=== PATIENT | male | born 1960 | race Caucasian/White ===

== ENCOUNTER → 2018-09-11 | Outpatient (CLI) | payer OTHER ==
--- NOTE | 2018-09-11 17:42 | US ---
EXAMINATION TYPE: US kidneys/renal and bladder DATE OF EXAM: 09/11/2018 COMPARISON: NONE CLINICAL HISTORY: 57-year-old male [id number]. Back pain TECHNIQUE: Multiple sonographic images of the kidneys and bladder are obtained. EXAM MEASUREMENTS: Right Kidney: 9.9 x 4.8 x 4.5 cm Left Kidney: 10.6 x 6.1 x 5.0 cm Right Kidney: No hydronephrosis. Tiny 6 mm cyst in the upper to midpole. Left Kidney: No hydronephrosis. Limited visualization due to overlying bowel gas Bladder: wnl Bilateral Jets seen: Yes IMPRESSION: No hydronephrosis. Limited visualization of portions of left kidney due to bowel gas.
== END | disposition home or self-care (01) ==
LOC: RADUSWWP 14:03
DX: M54.5 Low back pain (principal)
CPT/HCPCS: 76770

== ENCOUNTER → 2019-05-01 | Outpatient (CLI) | payer OTHER ==
--- NOTE | 2019-05-01 10:19 | MR ---
EXAMINATION TYPE: MR lumbar spine wo con DATE OF EXAM: 05/01/2019 COMPARISON: NONE HISTORY: Low back pain TECHNIQUE: T1 and T2 axial and sagittal images of the lumbar spine are submitted. FINDINGS: There is no abnormal signal seen within the visualized spinal cord or paraspinal soft tissu es. At L1-2 there is hypertrophic change of the facets. No foraminal encroachment. No disc herniation ant erior hypertrophic spurring noted. No Canal stenosis. At L2-3 there is moderate degenerative disc disease. There is circumferential disc bulging and hypert rophy the facets and ligamentum flavum with borderline central stenosis and mild effacement of thecal sac. Mild bilateral foraminal encroachment. At L3-4 there is a broad-based central disc bulging with mild effacement of thecal sac. Hypertrophic changes facets and ligamentum flavum are noted. Neural foramina are patent. At L4-5 there is advanced facet arthropathy. There is disc bulging and mild effacement of thecal sac. Neural foramina remain patent. At L5-S1 there is degenerative disc disease with focal central disc bulge. No Canal stenosis. Hypertr ophic changes facets are noted in the neural foramina remain patent. IMPRESSION: 1. Multilevel degenerative disc disease with disc bulge or small left paracentral and central disc pr otrusion L5-S1. 2. Multilevel facet arthropathy with mild foraminal encroachment L2-L3. 3. Multilevel hypertrophic changes in combination with disc bulging results in borderline central andrea nosis L2-3, L3-4, and L4-L5.
== END | disposition home or self-care (01) ==
LOC: RADMRIMAIN 09:24
DX: M48.061 Spinal stenosis, lumbar region without neurogenic claudication (principal); M51.26 Other intervertebral disc displacement, lumbar region; M51.27 Other intervertebral disc displacement, lumbosacral region; M51.37 Other intervertebral disc degeneration, lumbosacral region; M46.96 Unspecified inflammatory spondylopathy, lumbar region
CPT/HCPCS: 72148

== ENCOUNTER → 2020-09-24 | Outpatient (CLI) | payer OTHER ==
[2020-09-24 14:32] LABS: Appearance,Urine Clear (Clear); Bilirubin,Urine Negative (Negative); Blood,Urine Negative (Negative); Color,Urine Yellow; Glucose,Urine (UA) 3+ (Negative); Ketones,Urine 1+ (Negative); Leukocyte Esterase,Urine Negative (Negative); Nitrite,Urine Negative (Negative); Protein,Urine Negative (Negative); Specific Gravity,Urine 1.019 (1.001-1.035)
[2020-09-24 14:48] LABS: Basophils % (A) 0 %; Eosinophils % (A) 0 %; HCT 44.6 % (39.0-53.0); HGB 14.1 gm/dL (13.0-17.5); Lymphocytes # (A) 0.9 k/uL (1.0-4.8); Lymphocytes % (A) 11 %; MCH 30.2 pg (25.0-35.0); MCHC 31.5 g/dL (31.0-37.0); MCV 95.7 fL (80.0-100.0); Mean Platelet Volume 7.3; Monocytes # (A) 0.3 k/uL (0-1.0); Monocytes % (A) 4 %; Neutrophils # (A) 6.9 k/uL (1.3-7.7); Neutrophils % (A) 85 %; Platelet Count 274 k/uL (150-450); RBC 4.67 m/uL (4.30-5.90); RDW 12.7 % (11.5-15.5); WBC 8.2 k/uL (3.8-10.6)
[2020-09-24 14:53] LABS: Calcium 9.4 mg/dL (8.4-10.2); Potassium 4.8 mmol/L (3.5-5.1)
== END ==
LOC: LABPAT 12:51
PROVIDERS: ATTEND Urology
DX: Z01.812 Encounter for preprocedural laboratory examination (principal); R35.0 Frequency of micturition; Z79.899 Other long term (current) drug therapy
CPT/HCPCS: 80048; 81003; 85025; 87086

== ENCOUNTER 2020-10-01 09:11 | Day surgery (SDC) | payer OTHER ==
[2020-09-30 11:56] VITALS: BMI 26.6
--- NOTE | 2020-09-30 17:51 | P.GSHP ---
History of Present Illness H&P Date: 09/30/20 59 yo male with a 10 year history of impotence secondary to peripheral vascular disease from hyper cholesterolemia and htn He has eventually failed pde5 inhibitors and vasoactive injections. HE comes for an inflatable penile prosthesis. the risks and complications including failure, infection, erosion, pain, lack of satisfaction among others have been explained understood and accepted. - Constitutional Constitutional: Denies chills, Denies fever - EENT Eyes: denies blurred vision, denies pain Ears, nose, mouth and throat: Denies headache, Denies sore throat - Cardiovascular Cardiovascular: Denies chest pain, Denies shortness of breath - Respiratory Respiratory: Denies cough, Denies 7 - Gastrointestinal Gastrointestinal: Denies abdominal pain, Denies diarrhea, Denies nausea, Denies vomiting - Genitourinary (Female) Genitourinary: Denies dysuria, Denies hematuria - Genitourinary (Male) Genitourinary: Denies dysuria, Denies hematuria - Musculoskeletal Musculoskeletal: Denies myalgias - Integumentary Integumentary: Denies pruritus, Denies rash - Neurological Neurological: Denies numbness, Denies weakness - Psychiatric Psychiatric: Denies anxiety, Denies depression - Endocrine Endocrine: Denies fatigue, Denies weight change Past Medical History Past Medical History: GERD/Reflux, Hyperlipidemia, Hypertension, Prostate Disorder History of Any Multi-Drug Resistant Organisms: None Reported Past Surgical History: Adenoidectomy, Appendectomy, Cholecystectomy, Orthopedic Surgery, Tonsillectomy Additional Past Surgical History / Comment(s): BILAT HEEL SPURS REMOVED. DEVIATED SEPTUM REPAIRED Past Anesthesia/Blood Transfusion Reactions: No Reported Reaction Smoking Status: Former smoker - Past Family History Mother Family Medical History: Cancer Medications and Allergies Home Medications Medication Instructions Recorded Confirmed Type Cetirizine HCl 10 mg PO DAILY 09/30/20 09/30/20 History Divalproex [Depakote] 500 mg PO HS 09/30/20 09/30/20 History Losartan [Cozaar] 25 mg PO DAILY 09/30/20 09/30/20 History Lurasidone HCl [Latuda] 60 mg PO DAILY 09/30/20 09/30/20 History Montelukast [Singulair] 10 mg PO DAILY 09/30/20 09/30/20 History Naproxen 375 mg PO DAILY PRN 09/30/20 09/30/20 History Pantoprazole Sodium 40 mg PO DAILY 09/30/20 09/30/20 History Pravastatin Sodium [Pravachol] 80 mg PO DAILY 09/30/20 09/30/20 History Tamsulosin [Flomax] 0.4 mg PO HS 09/30/20 09/30/20 History hydrOXYzine pamoate [hydrOXYzine 50 mg PO TID 09/30/20 09/30/20 History PAMOATE] Allergies Allergy/AdvReac Type Severity Reaction Status Date / Time bee venom protein (honey bee) Allergy Anaphylaxis Verified 09/30/20 11:41 codeine Allergy Dyspnea Verified 09/30/20 11:41 Sulfa (Sulfonamide Allergy Dyspnea Verified 09/30/20 11:41 Antibiotics) Surgical - Exam - General well developed, well nourished, no distress - Eyes PERRL - ENT no hearing loss - Neck no masses, trachea midline - Respiratory normal expansion, normal respiratory effort - Cardiovascular Rhythm: regular - Abdomen Abdomen: soft, non tender - Genitourinary normal penis with no external lesions, testicles present - Integumentary no rash, no growths - Neurologic normal coordination, normal sensation - Musculoskeletal normal gait, normal posture - Psychiatric oriented to time, oriented to person, oriented to place, speech is normal, memory intact Assessment and Plan Assessment: Impression: 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
--- NOTE | 2020-09-30 17:56 | P.GSHP ---
History of Present Illness H&P Date: 09/30/20 89 yo male who comes for a second ureteroscopy and laser lithotripsy to a very large right ureteral stone. Part of the stone was removed on 09/08/2020 but due to severe edema I aborted the procedure as I was afraid of losing ureteral access. He comes for another ureteroscopy and laser lithotripsy to the rt ureteral stone - Constitutional Constitutional: Denies chills, Denies fever - EENT Eyes: denies blurred vision, denies pain Ears, nose, mouth and throat: Denies headache, Denies sore throat - Cardiovascular Cardiovascular: Denies chest pain, Denies shortness of breath - Respiratory Respiratory: Denies cough, Denies 7 - Gastrointestinal Gastrointestinal: Denies abdominal pain, Denies diarrhea, Denies nausea, Denies vomiting - Genitourinary (Female) Genitourinary: Denies dysuria, Denies hematuria - Genitourinary (Male) Genitourinary: Denies dysuria, Denies hematuria - Musculoskeletal Musculoskeletal: Denies myalgias - Integumentary Integumentary: Denies pruritus, Denies rash - Neurological Neurological: Denies numbness, Denies weakness - Psychiatric Psychiatric: Denies anxiety, Denies depression - Endocrine Endocrine: Denies fatigue, Denies weight change Past Medical History Past Medical History: GERD/Reflux, Hyperlipidemia, Hypertension, Prostate Disorder History of Any Multi-Drug Resistant Organisms: None Reported Past Surgical History: Adenoidectomy, Appendectomy, Cholecystectomy, Orthopedic Surgery, Tonsillectomy Additional Past Surgical History / Comment(s): BILAT HEEL SPURS REMOVED. DEVIATED SEPTUM REPAIRED Past Anesthesia/Blood Transfusion Reactions: No Reported Reaction Smoking Status: Former smoker - Past Family History Mother Family Medical History: Cancer Medications and Allergies Home Medications Medication Instructions Recorded Confirmed Type Cetirizine HCl 10 mg PO DAILY 09/30/20 09/30/20 History Divalproex [Depakote] 500 mg PO HS 09/30/20 09/30/20 History Losartan [Cozaar] 25 mg PO DAILY 09/30/20 09/30/20 History Lurasidone HCl [Latuda] 60 mg PO DAILY 09/30/20 09/30/20 History Montelukast [Singulair] 10 mg PO DAILY 09/30/20 09/30/20 History Naproxen 375 mg PO DAILY PRN 09/30/20 09/30/20 History Pantoprazole Sodium 40 mg PO DAILY 09/30/20 09/30/20 History Pravastatin Sodium [Pravachol] 80 mg PO DAILY 09/30/20 09/30/20 History Tamsulosin [Flomax] 0.4 mg PO HS 09/30/20 09/30/20 History hydrOXYzine pamoate [hydrOXYzine 50 mg PO TID 09/30/20 09/30/20 History PAMOATE] Allergies Allergy/AdvReac Type Severity Reaction Status Date / Time bee venom protein (honey bee) Allergy Anaphylaxis Verified 09/30/20 11:41 codeine Allergy Dyspnea Verified 09/30/20 11:41 Sulfa (Sulfonamide Allergy Dyspnea Verified 09/30/20 11:41 Antibiotics) Surgical - Exam - General well developed, well nourished - Eyes PERRL - ENT decreased hearing - Neck trachea midline - Respiratory normal expansion, normal respiratory effort - Cardiovascular Rhythm: regular - Abdomen Abdomen: soft, non tender - Genitourinary normal penis with no external lesions, testicles present - Integumentary no rash, no growths - Neurologic normal coordination, normal sensation - Musculoskeletal normal posture - Psychiatric oriented to time, oriented to person, oriented to place, speech is normal, memory intact Assessment and Plan Assessment: Impression: Right ureteral stone Plan: Right ureteroscopy with lasere lithotripsy
[~2020-10-01 09:11] MED LIST: AMPICILLIN 1,000 MG in SODIUM CHLORIDE 0.9% 50 ML IVPB ONE; DEXAMETHASONE SOD PHOSPHATE 4 MG/ML 1 ML VIAL IV ONE; GENTAMICIN 110 MG in SODIUM CHLORIDE 0.9% 100 ML IVPB ONE; HYDROmorphone 0.5 MG/0.5 ML SYRINGE IVP PRN; LACTATED RINGERS 1,000 ML IV SCH; ONDANSETRON 4 MG/2 ML VIAL IVP ONE
[2020-10-01] MEDS ORDERED: LIDOCAINE 1% (10MG/ML) FOR IV START INTRADERMA ONE (09:54)
[2020-10-01 10:07] LABS: Glucose,Whole Blood 107 mg/dL (75-99)
[2020-10-01] MEDS ORDERED: SUCCINYLCHOLINE CHLORIDE 100 MG/5 ML SYR IV ONE (10:58)
[2020-10-01] MEDS ORDERED: PROPOFOL 10 MG/ML 20 ML VIAL IV ONE (10:58)
[2020-10-01] MEDS ORDERED: LIDOCAINE 1% INJ 10MG/ML (20 ML MDV) ONE (10:58)
[2020-10-01] MEDS ORDERED: fentaNYL (PF) 50 MCG/ML 2 ML AMP ONE (10:58)
[2020-10-01] MEDS ORDERED: MIDAZOLAM 2 MG/2 ML VIAL ONE (10:58)
--- NOTE | 2020-10-01 12:31 | P.OP ---
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 He has impotence for several years. He has failed PDE 5 inhibitors vasoactive injections. He has no erection. He wishes an implant. He comes for that this procedure. The risks and complications including infection bleeding pain erosion malfunction and lack of satisfaction been explained and understood and accepted. Description of Procedure: Patient is brought to the operating suite. He is given a general endotracheal anesthesia. He is prepped and draped sterilely. A midline infrapubic incision is made to just above the pubis. The rectus fascias opened in the midline. The prevesical space is developed for the reservoir. I bring a right angle clamp through the external inguinal ring into the prevesical space. I then attached the reservoir tubing and pull back through the external ring. I then inflated the reservoir to 65 mL. I closed the rectus fascia with a running 0 PDS. I then exposed the corpora bilaterally. I make corporotomies after placing stay stitches in each corpora. I then dilate the corpora proximally and distally right and left with Metzenbaum scissors and then Hegar dilators 9-13 bilaterally. I measured the length of the corpora 9 cm proximally and 8 cm distally bilaterally. I therefore use a series 700 CX implant 15 cm +2 cm rear- tip extension forester. I then attached the ditch at the tip of the implant through the Cachorro needle into the Bryant introducer and advanced the implant right left through the tip of the glans penis a. I then place the implant in distally and proximally. I inflate the implant and there is no ST deformity or buckling. I then deflated the implant and close each corporotomy 3-0 PDS. Then make a separate scrotal pouch for the pump. Then connected the pump to the reservoir with straight connects. I once again inflate and deflate the implant and it does so nicely. The wound thoroughly. The wound was closed with 3-0 chromic and then 4-0 Vicryl. The skin is closed. The patient is awake and returned recovery in good condition. Prior to this a 14-Malian Sumner catheters passed in and out of the bladder with clear urine return. Patellar procedure well. The blood loss is approximately 100 mL. We discharged home upon recovery and found the office one week.
[2020-10-01 12:36] VITALS: TEMP 97.1
[2020-10-01] MEDS ORDERED: HYDROcodone/APAP 5-325MG 1 EACH TAB ONE (13:21)
[2020-10-01] MEDS ORDERED: HYDROcodone/APAP 5-325MG 1 EACH TAB PO ONE (13:27)
[2020-10-01 13:49] VITALS: RESP 16
[2020-10-01 14:06] VITALS: BP 133/83; PULSE 63
== END 2020-10-01 14:22 | disposition home or self-care (01) ==
LOC: OR 09:11
PROVIDERS: ATTEND Urology
DX: N52.1 Erectile dysfunction due to diseases classified elsewhere (principal); I73.9 Peripheral vascular disease, unspecified; I10 Essential (primary) hypertension; N20.1 Calculus of ureter; E78.5 Hyperlipidemia, unspecified; F31.9 Bipolar disorder, unspecified; F90.9 Attention-deficit hyperactivity disorder, unspecified type; K21.9 Gastro-esophageal reflux disease without esophagitis; E78.00 Pure hypercholesterolemia, unspecified; Z91.030 Bee allergy status; Z88.5 Allergy status to narcotic agent; Z79.1 Long term (current) use of non-steroidal anti-inflammatories (NSAID); Z88.2 Allergy status to sulfonamides; Z79.899 Other long term (current) drug therapy; Z98.890 Other specified postprocedural states; Z90.49 Acquired absence of other specified parts of digestive tract; Z87.891 Personal history of nicotine dependence; Z80.9 Family history of malignant neoplasm, unspecified
CPT/HCPCS: 54405; C1813; J2250; J1580; J1100; J2405; J2001; J3010; J0290; J0330; J2704

== ENCOUNTER → 2021-03-30 | Outpatient (CLI) | payer OTHER ==
[2021-03-30 11:25] VITALS: BP 115/75; PULSE 64; RESP 18; TEMP 98
--- NOTE | 2021-03-30 11:47 | P.PAINCN ---
History of Present Illness - Reason for Consult Consult date: 03/30/21 - History of Present Illness This is 60 years old male with a chronic history of severe low back pain with radiation to the lower extremity bilaterally, started 2 years ago, denies any initiating event and he reported that the intensity of the pain increased gradually over time, his done physical therapy without any benefit and he had interventional pain management injections on a different pain clinic with some benefit, continues having severe low back pain with radiation to the lower extremity associated with some numbness and tingling sensation, the pain is constant and increases with any activity interfere with her quality of life and preventing him from doing activities of daily livings, if patient feels some weakness in his lower extremity bilaterally, he denies any change in the bowel movement or urination he denies any fever or night sweats Past Medical History Past Medical History: GERD/Reflux, Hyperlipidemia, Hypertension, Prostate Disorder History of Any Multi-Drug Resistant Organisms: None Reported Past Surgical History: Adenoidectomy, Appendectomy, Cholecystectomy, Orthopedic Surgery, Tonsillectomy Additional Past Surgical History / Comment(s): BILAT HEEL SPURS REMOVED. DEVIATED SEPTUM REPAIRED. PENILE IMPLANT 09/2020 Past Anesthesia/Blood Transfusion Reactions: No Reported Reaction Past Psychological History: ADD/ADHD, Bipolar Smoking Status: Former smoker Past Alcohol Use History: None Reported Additional Past Alcohol Use History / Comment(s): QUIT SMOKING 2018 Past Drug Use History: None Reported - Past Family History Mother Family Medical History: Cancer Medications and Allergies Home Medications Medication Instructions Recorded Confirmed Type Cetirizine HCl 10 mg PO DAILY 09/30/20 10/01/20 History Divalproex [Depakote] 500 mg PO HS 09/30/20 10/01/20 History Losartan [Cozaar] 25 mg PO DAILY 09/30/20 10/01/20 History Lurasidone HCl [Latuda] 60 mg PO DAILY 09/30/20 10/01/20 History Montelukast [Singulair] 10 mg PO DAILY 09/30/20 10/01/20 History Naproxen 375 mg PO DAILY PRN 09/30/20 10/01/20 History Pantoprazole Sodium 40 mg PO DAILY 09/30/20 10/01/20 History Pravastatin Sodium [Pravachol] 80 mg PO DAILY 09/30/20 10/01/20 History Tamsulosin [Flomax] 0.4 mg PO HS 09/30/20 10/01/20 History hydrOXYzine pamoate [hydrOXYzine 50 mg PO TID 09/30/20 10/01/20 History PAMOATE] HYDROcodone/APAP 5-325MG [Price 1 tab PO Q4HR PRN #14 tab 10/01/20 Rx 5-325] Allergies Allergy/AdvReac Type Severity Reaction Status Date / Time bee venom protein (honey bee) Allergy Anaphylaxis Verified 03/11/21 14:13 codeine Allergy Dyspnea Verified 03/11/21 14:13 Sulfa (Sulfonamide Allergy Dyspnea Verified 03/11/21 14:13 Antibiotics) Physical Exam Vitals: Vital Signs Temp Pulse Resp BP Pulse Ox 03/30/21 11:21 98.0 F 64 18 115/75 94 L Physical Examinations : -Constitutiona : Cooperative , not in acute distress . -HEENT : nech : supple , no Lymphadenopathy , normal thyroid size . : eyes : no ptosis , no icterus, no photophobia . - neurologic : Cranial nerve II to XII intact , no focal neurological deffecit . -psychatric : alert , oriented X 3 , appropriate affect , intact judgment and insight . -Lymphatic : no Lymphadenopathy . - musculoskeltal : Cervical Spine motor stregnth in the deltoid and biceps, normal right side , normal Left side motor stregnth biceps and the wrist extensors normal right side ,normal left side . motor stregnth in the triceps muscle . normal Right side , normal Left side deep tendon reflexes normal at the biceps , normal at Brachioradialis , normal at triceps. cervical facet loading test: Positive Bilaterally Spurling test= positive Right , positive left. Neck distraction test= positive Right , positive left. Gabi sign= positive right, positive left . Lumber spine moter stegnth lower extremities ,thigh and legs 4/5 Right side , 4/5 Left side deep tendon reflexes : normal Knee Jerk , normal ankle Jerk lumber facet Loading Test =positive Right , positive Left Range of motion of the lumbar spine Flexion 30 degrees, extension 10 degrees strait leg raising test = positive at 30 degree on the right side and then increased positive at 60 on the left Fabere test= positive Right , and positive LT . Sever tenderness over the Sacroiliac joint on the Right , and Left sides tenderness over the trochanteric bursa bilaterally Results Comments: MRI of the lumbar spine multilevel lumbar degenerative disc disease multilevel lumbar facet arthropathy Assessment and Plan Plan: Assessment and plan=1-lumbar spondylosis with lumbar facet arthropathy without myelopathy. 2-lumbar degenerative disc disease. he would be good candidate for diagnostic medial branch block lumbar area at L3, L4 , L5 x2 with possible RFA Time with Patient: Greater than 30 PQRS Measure Charge Sheet Measure #130: Documentation of Current Meds in Medical Chart: Patient's medications documented in chart Measure #226: Tobacco Use: Screen & Cessation Intervention: Pt not a tobacco user Measure #111: Pneumonia Vaccination: Pneumococcal vaccine administered or previously received Measure #47: Advance Care Plan: Advance care planning discussed & documented, pt chose/unable to give Measure #412: Opioid Treatment Agreement: No documentation of signed opioid treatment agreement Measure #408: Opioid Therapy Follow-up Evaluation: Patient had NO f/u eval minimum every 3 months during opioid therapy Measure #317: Preventitive Care & Scrn High Bld Press & F/U: Normal blood pressure, f/u not required Measure #128: Body Mass Index (BMI) Screening & Follow-up: BMI documented ABOVE normal parameters - f/u documented Measure #131: Pain Assessment & Follow-up: Pain positive & plan documented, Follow-up scheduled Measure #431: Unhealthy Alcohol Use Preventative Care & Scrn: Patient not identified as an unhealthy alcohol user PQRS Narrative: Blood Pressure 115/75 Pain Intensity [Left Lower 9 Back] Scale Used Numeric (1 - 10) Hx Alcohol Use (MH) No Home Medications: Ambulatory Orders Cetirizine HCl 10 mg PO DAILY 09/30/20 Divalproex [Depakote] 500 mg PO HS 09/30/20 Losartan [Cozaar] 25 mg PO DAILY 09/30/20 Lurasidone HCl [Latuda] 60 mg PO DAILY 09/30/20 Montelukast [Singulair] 10 mg PO DAILY 09/30/20 Naproxen 375 mg PO DAILY PRN 09/30/20 Pantoprazole Sodium 40 mg PO DAILY 09/30/20 Pravastatin Sodium [Pravachol] 80 mg PO DAILY 09/30/20 Tamsulosin [Flomax] 0.4 mg PO HS 09/30/20 hydrOXYzine pamoate [hydrOXYzine PAMOATE] 50 mg PO TID 09/30/20 HYDROcodone/APAP 5-325MG [Price 5-325] 1 tab PO Q4HR PRN #14 tab 10/01/20
== END ==
LOC: PNWHC3 10:22
PROVIDERS: ATTEND Specialist
DX: M47.816 Spondylosis without myelopathy or radiculopathy, lumbar region (principal); M51.36 Other intervertebral disc degeneration, lumbar region; E78.5 Hyperlipidemia, unspecified; I10 Essential (primary) hypertension; F90.9 Attention-deficit hyperactivity disorder, unspecified type; F31.9 Bipolar disorder, unspecified; Z87.891 Personal history of nicotine dependence
CPT/HCPCS: 99211

== ENCOUNTER 2021-04-17 09:50 | Day surgery (SDC) | payer OTHER ==
[2021-04-15 14:39] VITALS: BMI 28.2
[2021-04-17 10:09] VITALS: TEMP 97.9
[2021-04-17] MEDS: LACTATED RINGERS 1,000 ML IV SCH ×2 (10:20→10:43)
[2021-04-17] MEDS ORDERED: fentaNYL (PF) 50 MCG/ML 2 ML AMP ONE (10:45)
[2021-04-17] MEDS ORDERED: MIDAZOLAM 2 MG/2 ML VIAL ONE (10:45)
[2021-04-17] MEDS ORDERED: methylPREDNISolone ACETATE 40 MG/ML 1 ML VIAL ONE (10:45)
[2021-04-17] MEDS ORDERED: ROPIVACAINE 5MG/ML 20ML VIAL ONE (10:45)
--- NOTE | 2021-04-17 11:02 | P.PCN ---
Date of Procedure: 04/17/21 Procedure(s) Performed: PREOPERATIVE DIAGNOSIS : 1- Lumbar spondylosis with Facet Arthropathy without myelopathy . 2- Lumber degenerative disc disease POSTOPERATIVE DIAGNOSIS: 1- Lumbar spondylosis with Facet Arthropathy without myelopathy . 2- Lumber degenerative disc disease. PROCEDURE: Diagnostic bilateral L3 , L4 , and L5 medial branch block under fluoroscopy guidance(fluoroscopy images available in the radiology Department ) ( To target the facet joint between bilateral L4-5 , and L5-S1 ) ANESTHESIA: Monitored anesthesia care as per anesthesia department. EBL: Minimal COMPLICATION: None PROCEDURE INDICATION: Chronic low back pain secondary to Facet arthropathy unresponsive to conservative treatment. PROCEDURE DESCRIPTION: the patient was seen and identified in the preop holding area , risks and benefits and possible complications of the procedure and alternative were discussed with the patient, and the patient agreed to proceed with the procedure and signed the consent and vital signs monitored during the procedure and fluoroscopy was used to maximize the benefit and accuracy of the needle placement, and sedation was given to decrease patient anxiety, patient was taken to the procedure room and placed in prone position vital signs monitored in the back prepped with chlorhexidine X3 then under strict sterile technique using a right oblique fluoroscopy ,the junction of the transverse process and the superior articulating process of the right L3 , L4 , and L5 vertebra which corresponding to the fluoroscopy image of the eye of the Audi dog on the block side for the medial branches and subsequently , after local infiltration of skin and subcu tissuies with Ropivacaine 0.5 % , one mL at each level ,then 22-gauge Quincke-type needles , 3 needle was used , each one of them placed at the junction of the base of the transverse process and the superior articular process at the appropriate level, and the needle was advanced until the periosteum contacted, needle placement confirmed with AP oblique and lateral view and after appropriate needle placement confirmed, and after negative aspiration for heme and CSF and there was no paresthesia 1-1/2 mL of Ropivacaine 0.5% mixed with 20 mg Depo-Medrol , then half mL injected at each level after negative aspiration the needle subsequently removed and the same procedure repeated for the left side at left side at L3 , L4 and L5 levels. At the end of the procedure and the needles removed and a bandage applied after the skin was cleaned the cleaning solution patient taken to recovery room in stable condition and monitors in the recovery room for 20-30 minutes and discharged home in stable condition after discharge criteria met and patient will follow up with the pain clinic in 2-4 weeks
[2021-04-17] MEDS ORDERED: IV FLUID CONTINUATION 1,000 ML IV ONE (11:07)
[2021-04-17] MEDS ORDERED: LACTATED RINGERS 650 ML IV ONE (11:07)
[2021-04-17 12:13] VITALS: BP 120/72; PULSE 63; RESP 20
--- NOTE | 2021-04-17 15:14 | FL ---
Fluoroscopy HISTORY: Pain 9 seconds fluoroscopy time supplied to the referring clinician. 4 intraoperative C-arm images docume nt the procedure. See dictated report from anesthesia.
== END 2021-04-17 12:24 | disposition home or self-care (01) ==
LOC: ORPAIN 09:50
PROVIDERS: ATTEND Specialist
DX: M47.816 Spondylosis without myelopathy or radiculopathy, lumbar region (principal); I10 Essential (primary) hypertension; E78.5 Hyperlipidemia, unspecified; N40.0 Benign prostatic hyperplasia without lower urinary tract symptoms; Z79.899 Other long term (current) drug therapy; Z88.5 Allergy status to narcotic agent; M51.36 Other intervertebral disc degeneration, lumbar region
CPT/HCPCS: 64493; 64494; J2250; J1030; J3010; J2795

== ENCOUNTER → 2021-04-28 | Outpatient (CLI) | payer OTHER ==
--- NOTE | 2021-04-28 11:40 | MR ---
EXAMINATION TYPE: MR lumbar spine wo con DATE OF EXAM: 04/28/2021 COMPARISON: MR lumbar spine 05/01/2019 HISTORY: Chronic LBP, BLE radiculopathy. TECHNIQUE: Multiplanar, multisequence images of the lumbar spine were acquired. L1-L2: Normal disc appearance without desiccation. No herniation, protrusion or disc bulging. No ca nal stenosis is present. Foramina are patent bilaterally. L2-L3: Posterior extension endplate disc complex causes mild anterior mass effect on the thecal sac. There is some facet arthropathy change. No significant foraminal encroachment. L3-L4: There is some facet arthropathy, hypertrophy ligamentum flavum. Posterior extension of endplat e disc complex contacts anterior thecal sac, no significant foraminal encroachment. L4-L5: Posterior disc bulge causes slight anterior mass effect on the thecal sac. There is facet arth ropathy change with hypertrophy ligamentum flavum. No significant foraminal encroachment. L5-S1: Posterior broad-based disc bulge causes contact with the anterior thecal sac, possibly proxima l S1 nerve roots. No significant foraminal encroachment. Lumbar segments are intact. No paraspinal masses are identified. Conus medullaris has a normal appe arance. Lumbar vertebral bodies show stable height and alignment, there is multilevel spondylosis wit h endplate discogenic marrow signal change. Loss of disc height signal is present L5-S1, L2-3. No sig nificant spinal stenosis. IMPRESSION: There is no significant interval change. Multilevel degenerative disc disease, facet arthropathy, no significant canal stenosis or foraminal encroachment.
== END | disposition home or self-care (01) ==
LOC: RADMRIMAIN 10:38
PROVIDERS: ATTEND Physician Assistant Medical
DX: M51.36 Other intervertebral disc degeneration, lumbar region (principal); M47.816 Spondylosis without myelopathy or radiculopathy, lumbar region; Z87.39 Personal history of other diseases of the musculoskeletal system and connective tissue
CPT/HCPCS: 72148

== ENCOUNTER 2021-05-15 10:09 | Day surgery (SDC) | payer OTHER ==
[2021-05-14 11:39] VITALS: BMI 28.0
[~2021-05-15 10:09] MED LIST changes: -AMPICILLIN 1,000 MG in SODIUM CHLORIDE 0.9% 50 ML IVPB ONE; -DEXAMETHASONE SOD PHOSPHATE 4 MG/ML 1 ML VIAL IV ONE; -GENTAMICIN 110 MG in SODIUM CHLORIDE 0.9% 100 ML IVPB ONE; -HYDROmorphone 0.5 MG/0.5 ML SYRINGE IVP PRN; -ONDANSETRON 4 MG/2 ML VIAL IVP ONE
[2021-05-15] MEDS ORDERED: LACTATED RINGERS 1,000 ML IV ONE (10:24)
[2021-05-15 10:25] VITALS: TEMP 97.7
[2021-05-15] MEDS ORDERED: fentaNYL (PF) 50 MCG/ML 2 ML AMP ONE (11:09)
[2021-05-15] MEDS ORDERED: ROPIVACAINE 5MG/ML 20ML VIAL ONE (11:09)
[2021-05-15] MEDS ORDERED: methylPREDNISolone ACETATE 40 MG/ML 1 ML VIAL ONE (11:09)
[2021-05-15] MEDS ORDERED: MIDAZOLAM 2 MG/2 ML VIAL ONE (11:09)
--- NOTE | 2021-05-15 11:32 | P.PCN ---
Date of Procedure: 05/15/21 Procedure(s) Performed: PREOPERATIVE DIAGNOSIS : 1- Lumbar spondylosis with Facet Arthropathy without myelopathy . 2- Lumber degenerative disc disease POSTOPERATIVE DIAGNOSIS: 1- Lumbar spondylosis with Facet Arthropathy without myelopathy . 2- Lumber degenerative disc disease. PROCEDURE: Diagnostic bilateral L3 , L4 , and L5 medial branch block under fluoroscopy guidance(fluoroscopy images available in the radiology Department ) ( To target the facet joint between bilateral L4-5 , and L5-S1 ) # 2nd ANESTHESIA: Monitored anesthesia care as per anesthesia department. EBL: Minimal COMPLICATION: None PROCEDURE INDICATION: Chronic low back pain secondary to Facet arthropathy unresponsive to conservative treatment. PROCEDURE DESCRIPTION: the patient was seen and identified in the preop holding area , risks and benefits and possible complications of the procedure and alternative were discussed with the patient, and the patient agreed to proceed with the procedure and signed the consent and vital signs monitored during the procedure and fluoroscopy was used to maximize the benefit and accuracy of the needle placement, and sedation was given to decrease patient anxiety, patient was taken to the procedure room and placed in prone position vital signs monitored in the back prepped with chlorhexidine X3 then under strict sterile technique using a right oblique fluoroscopy ,the junction of the transverse process and the superior articulating process of the right L3 , L4 , and L5 vertebra which corresponding to the fluoroscopy image of the eye of the Audi dog on the block side for the medial branches and subsequently , after local infiltration of skin and subcu tissuies with Ropivacaine 0.5 % , one mL at each level ,then 22-gauge Quincke-type needles , 3 needle was used , each one of them placed at the junction of the base of the transverse process and the superior articular process at the appropriate level, and the needle was advanced until the periosteum contacted, needle placement confirmed with AP oblique and lateral view and after appropriate needle placement confirmed, and after negative aspiration for heme and CSF and there was no paresthesia 1-1/2 mL of Ropivacaine 0.5% mixed with 20 mg Depo-Medrol , then half mL injected at each level after negative aspiration the needle subsequently removed and the same procedure repeated for the left side at left side at L3 , L4 and L5 levels. At the end of the procedure and the needles removed and a bandage applied after the skin was cleaned the cleaning solution patient taken to recovery room in stable condition and monitors in the recovery room for 20-30 minutes and discharged home in stable condition after discharge criteria met and patient will follow up with the pain clinic in 2-4 weeks
[2021-05-15 11:39] VITALS: RESP 16
[2021-05-15 11:56] VITALS: BP 123/83; PULSE 82
--- NOTE | 2021-05-15 12:00 | FL ---
Fluoroscopy INDICATION: Pain FINDINGS: Fluoroscopy time: 36 seconds. Images obtained: 4. IMPRESSIONS: 1. Documentation of fluoroscopy.
[2021-05-15] MEDS ORDERED: IV FLUID CONTINUATION 1,000 ML IV ONE (12:10)
== END 2021-05-15 12:24 | disposition home or self-care (01) ==
LOC: ORPAIN 10:09
PROVIDERS: ATTEND Specialist
DX: G89.29 Other chronic pain (principal); M47.816 Spondylosis without myelopathy or radiculopathy, lumbar region; M51.36 Other intervertebral disc degeneration, lumbar region; I10 Essential (primary) hypertension; E78.5 Hyperlipidemia, unspecified; N40.0 Benign prostatic hyperplasia without lower urinary tract symptoms; K21.9 Gastro-esophageal reflux disease without esophagitis; Z79.891 Long term (current) use of opiate analgesic; Z79.899 Other long term (current) drug therapy; Z91.030 Bee allergy status; Z88.5 Allergy status to narcotic agent; Z88.2 Allergy status to sulfonamides
CPT/HCPCS: 64493; 64494; J2250; J1030; J3010; J2795

== ENCOUNTER → 2021-06-10 | Outpatient (CLI) | payer OTHER ==
[2021-06-10 13:11] VITALS: BP 107/75; PULSE 75; RESP 18; TEMP 98.3
--- NOTE | 2021-06-10 13:31 | P.PN ---
Subjective Progress Note Date: 06/10/21 This is 60 years old male with a chronic history of severe low back pain with radiation to the lower extremity bilaterally, started 2 years ago, denies any initiating event and he reported that the intensity of the pain increased gradually over time, his done physical therapy without any benfit, recently we did diagnostic medial branch block lumbar area at L3 L4, L5 BIlaterally 2, he reported that he had an 80% improvement in his back pain after each block and the pain relief as it for a few days, and today he is having severe low back pain, the pain is constant and increases with any activity interfere with quality of life ,and preventing him from doing activities of daily livings. Physical Examinations : -Constitutiona : Cooperative , not in acute distress . -HEENT : nech : supple , no Lymphadenopathy , normal th yroid size . : eyes : no ptosis , no icterus, no photophobia . - neurologic : Cranial nerve II to XII intact , no focal neurological deffecit . -psychatric : alert , oriented X 3 , appropriate affect , intact judgment and insight . -Lymphatic : no Lymphadenopathy . - musculoskeltal : Cervical Spine motor stregnth in the deltoid and biceps, normal right side , normal Left side motor stregnth biceps and the wrist extensors normal right side ,normal left side . motor stregnth in the triceps muscle . normal Right side , normal Left side deep tendon reflexes normal at the biceps , normal at Brachioradialis , normal at triceps. cervical facet loading test: Positive Bilaterally Spurling test= positive Right , positive left. Neck distraction test= positive Right , positive left. Gabi sign= positive right, positive left . Lumber spine moter stegnth lower extremities ,thigh and legs 4/5 Right side , 4/5 Left side deep tendon reflexes : normal Knee Jerk , normal ankle Jerk lumber facet Loading Test =positive Right , positive Left Range of motion of the lumbar spine Flexion 30 degrees, extension 10 degrees strait leg raising test = positive at 30 degree on the right side and then increased positive at 60 on the left Fabere test= positive Right , and positive LT . Sever tenderness over the Sacroiliac joint on the Right , and Left sides tenderness over the trochanteric bursa bilaterally Results MRI of the lumbar spine multilevel lumbar degenerative disc disease multilevel lumbar facet arthropathy Assessment and Plan Plan: Assessment and plan=1-lumbar spondylosis with lumbar facet arthropathy without myelopathy. 2-lumbar degenerative disc disease. he would be good candidate to have RFA medial branch block lumbar area at L3, L4 , L5 PQRS Measure Charge Sheet Measure #130: Documentation of Current Meds in Medical Chart: Patient's medications documented in chart Measure #226: Tobacco Use: Screen & Cessation Intervention: Pt not a tobacco user Measure #111: Pneumonia Vaccination: Pneumococcal vaccine administered or previously received Measure #47: Advance Care Plan: Advance care planning discussed & documented, pt chose/unable to give Measure #412: Opioid Treatment Agreement: No documentation of signed opioid treatment agreement Measure #408: Opioid Therapy Follow-up Evaluation: Patient had NO f/u eval minimum every 3 months during opioid therapy Measure #317: Preventitive Care & Scrn High Bld Press & F/U: Normal blood pressure, f/u not required Measure #128: Body Mass Index (BMI) Screening & Follow-up: BMI documented ABOVE normal parameters - f/u documented Measure #131: Pain Assessment & Follow-up: Pain positive & plan documented, Follow-up scheduled Measure #431: Unhealthy Alcohol Use Preventative Care & Scrn: Patient not identified as an un Objective - Vital Signs Vital signs: Vital Signs Temp 98.3 F 06/10/21 13:08 Pulse 75 06/10/21 13:08 Resp 18 06/10/21 13:08 BP 107/75 06/10/21 13:08 Pulse Ox 94 L 06/10/21 13:08 Intake & Output 06/09/21 06/10/21 06/10/21 18:59 06:59 18:59 Weight 83.915 kg
== END | disposition home or self-care (01) ==
LOC: PNWHC3 12:56
PROVIDERS: ATTEND Specialist
DX: M51.36 Other intervertebral disc degeneration, lumbar region (principal); M47.816 Spondylosis without myelopathy or radiculopathy, lumbar region; M46.96 Unspecified inflammatory spondylopathy, lumbar region
CPT/HCPCS: 99211

== ENCOUNTER → 2021-07-03 | Day surgery (SDC) | payer OTHER ==
[2021-07-01 14:45] VITALS: BMI 27.0
[~2021-07-03] MED LIST changes: +IV FLUID CONTINUATION 1,000 ML IV ONE; +MIDAZOLAM 2 MG/2 ML VIAL ONE; +ROPIVACAINE 5MG/ML 20ML VIAL ONE; +fentaNYL (PF) 50 MCG/ML 2 ML AMP ONE; +methylPREDNISolone ACETATE 40 MG/ML 1 ML VIAL ONE
[2021-07-03 11:34] VITALS: TEMP 97.9
--- NOTE | 2021-07-03 12:33 | P.PCN ---
Date of Procedure: 07/03/21 Procedure(s) Performed: PREOPERATIVE DIAGNOSIS: 1-Lumbar Spondylosis with Facet Arthropathy without myelopathy. 2- Lumber degenerative disc disease. POSTOPERATIVE DIAGNOSIS: 1- Lumbar Spondylosis with Facet Arthropathy without myelopathy. 2- Lumber degenerative disc disease. PROCEDURES : Bilateral Radiofrequency thermocoagulation, L3 , L4 , and L5 medial branch, with fluoroscopic guidance (fluoroscopy images available in the radiology department) ( to denervate the facet joint at L4-5 ,and L5-S1 levels ). ANESTHESIA: Monitored anesthesia care as per anesthesia department . EBL: Minimal PROCEDURE INDICATION: The patient with low back pain secondary to lumbar facet arthropathy who had more than 50% relief of her pain with previous diagnostic lumbar medial branch block with bupivacaine. PROCEDURE DESCRIPTION / TECHNIQUE: The patient was seen and identified in the preoperative area. Risks, benefits, complications, including but not limited to risk of infection ,bleeding , allergic reactions to the medications and no complete pain releife , and alternatives were discussed with the patient, the patient agreed to proceed with the procedure and signed the consent. IV was started. Vital signs remained stable throughout the procedure. Patient was taken to the OR and time out was completed. The patient was placed in the prone position on the procedure table. The lumber area was prepped and draped in the usual sterile fashion. . Vital signs were closely monitored during the procedure .IV sedation was used during the procedure to decrease patients anxiety. Using AP and then oblique fluoroscopy, the ``eye of the Audi dog corresponding to the connection between the superior and transverse articular processes of right L3, L4, and L5 were identified, marked, and localized with 1% lidocaine. Subsequently, a [id number] radiofrequency cannula with a 10- mm active tip was advanced guided by fluoroscopy to each of the``eyes of the Audi dog at right L3, L4, and L5. Each site then underwent sensory testing at 50 Hz and 0 to 1 volt and motor testing at 2.5 Hz and 0 to 3 volt with local stimulation, but no radicular symptoms down the legs. Thereafter each sites underwent radiofrequency thermocoagulation at 80 degrees celsius for 90 seconds after injecting 0.5 ml of PF Ropivacaine 1ml, then after the thermocoagulation done , 1 ml of the block solution containing Depo-Medrol 40 mg and 3 ml of Ropivacaine 0.5% was injected at the right L3 , L4 , and L5 , levels after negative aspiration of CSF and blood and with no paresthesias. Cannulas were retracted while injecting lidocaine 1% until the needle is out. The same procedure was repeated at the level of Left L3, L4, and L5 levels. At the end of the procedure, the skin was cleansed and bandages were applied. COMPLICATIONS: No acute complications. DISPOSITION / PLANS: The patient was placed in a supine position and transferred to the recovery area in a stable condition for observation and was discharged from the recovery room after meeting discharge criteria. Home discharge instructions given to the patient by the staff. The patient was reexamined prior to discharge. The patient will schedule a follow up in the clinic in 2-4 weeks.
--- NOTE | 2021-07-03 12:46 | FL ---
Fluoroscopy INDICATION: Pain FINDINGS: Fluoroscopy time: 20 seconds. Images obtained: 7. IMPRESSIONS: 1. Documentation of fluoroscopy.
[2021-07-03 13:04] VITALS: BP 118/69; PULSE 78; RESP 18
== END ==
LOC: ORPAIN 11:13
PROVIDERS: ATTEND Specialist
DX: M47.816 Spondylosis without myelopathy or radiculopathy, lumbar region (principal); I10 Essential (primary) hypertension; E78.5 Hyperlipidemia, unspecified
CPT/HCPCS: 64635; 64636; J2250; J1030; J3010; J2795

== ENCOUNTER → 2021-07-27 | Outpatient (CLI) | payer OTHER ==
[2021-07-27 12:19] VITALS: BP 122/75; PULSE 63; RESP 18; TEMP 98.1
--- NOTE | 2021-07-27 12:22 | P.PAINPG ---
Subjective Progress Note Date: 07/27/21 This is 60 years old male with a chronic history of severe low back pain with radiation to the lower extremity bilaterally, started 2 years ago without any inciting incident. He had done physical therapy without any real benefit. We recently performed bilateral L4-L5 radiofrequency ablation. Unfortunately he received no relief from this procedure. His pain is described in his mid and low back as well as radiation to the bilateral lower extremities. He describes significant muscle spasms that occur throughout the day even while he is taking baclofen. The pain is unremitting and he has had epidural steroid injections in the past with no relief. At this point no procedures provided any meaningful relief. He denies any significant lower extremity weakness, bowel or bladder incontinence, saddle anesthesia. Physical Examinations : -Constitutiona : Cooperative , not in acute distress . -HEENT : nech : supple , no Lymphadenopathy , normal thyroid size . : eyes : no ptosis , no icterus, no photophobia . - neurologic : Cranial nerve II to XII intact , no focal neurological deffecit . -psychatric : alert , oriented X 3 , appropriate affect , intact judgment and insight . -Lymphatic : no Lymphadenopathy . - musculoskeltal : Cervical Spine motor stregnth in the deltoid and biceps, normal right side , normal Left side motor stregnth biceps and the wrist extensors normal right side ,normal left side . motor stregnth in the triceps muscle . normal Right side , normal Left side deep tendon reflexes normal at the biceps , normal at Brachioradialis , normal at triceps. cervical facet loading test: Positive Bilaterally Spurling test= positive Right , positive left. Neck distraction test= positive Right , positive left. Gabi sign= positive right, positive left . Lumber spine moter stegnth lower extremities ,thigh and legs 4/5 Right side , 4/5 Left side deep tendon reflexes : normal Knee Jerk , normal ankle Jerk lumber facet Loading Test =positive Right , positive Left Range of motion of the lumbar spine Flexion 30 degrees, extension 10 degrees strait leg raising test = positive at 30 degree on the right side and then increased positive at 60 on the left Fabere test= positive Right , and positive LT . Sever tenderness over the Sacroiliac joint on the Right , and Left sides tenderness over the trochanteric bursa bilaterally Results MRI of the lumbar spine multilevel lumbar degenerative disc disease multilevel lumbar facet arthropathy Assessment and Plan Plan: Assessment and plan=1-lumbar spondylosis with lumbar facet arthropathy without myelopathy. 2-lumbar degenerative disc disease. At this time do not believe any procedures would be of benefit to him. I do believe that it is time for him to at least have a consultation with a back surgeon to see if there is anything that can do for him. I have spent 26 minutes on patient care today. The time was used to review the medical records including relevant urine studies and prescription history, review of the available imaging, evaluation and examination of the patient, coordination of care with the medical staff and if applicable referring physicians, as well as creation of the medical record. = PQRS Measure Charge Sheet PQRS Narrative: Pain Intensity [Left Lower 6 Back] Scale Used Numeric (1 - 10) Hx Alcohol Use (MH) No Home Medications: Ambulatory Orders Cetirizine HCl 10 mg PO DAILY 09/30/20 Divalproex [Depakote] 500 mg PO HS 09/30/20 Losartan [Cozaar] 25 mg PO DAILY 09/30/20 Lurasidone HCl [Latuda] 60 mg PO HS 09/30/20 Montelukast [Singulair] 10 mg PO DAILY 09/30/20 Naproxen 375 mg PO DAILY PRN 09/30/20 Pantoprazole Sodium 40 mg PO DAILY 09/30/20 Pravastatin Sodium [Pravachol] 80 mg PO DAILY 09/30/20 Tamsulosin [Flomax] 0.4 mg PO HS 09/30/20 hydrOXYzine pamoate [hydrOXYzine PAMOATE] 50 mg PO TID 09/30/20 HYDROcodone/APAP 5-325MG [[place] 5-325] 1 tab PO Q4HR PRN #14 tab 10/01/20 Baclofen [Lioresal] 20 mg PO BID 04/15/21 Ferrous Sulfate [Feosol] 325 mg PO DAILY 04/15/21 Controlled Substance Measures - Controlled Substance Measures Is patient prescribed a controlled substance at discharge?: No
== END | disposition home or self-care (01) ==
LOC: PNWHC3 11:47
PROVIDERS: ATTEND Anesthesiology
DX: M51.36 Other intervertebral disc degeneration, lumbar region (principal); M46.96 Unspecified inflammatory spondylopathy, lumbar region; M47.896 Other spondylosis, lumbar region
CPT/HCPCS: 99211

== ENCOUNTER → 2022-01-14 | Outpatient (CLI) | payer OTHER ==
--- NOTE | 2022-01-14 16:49 | BD ---
EXAMINATION TYPE: Axial Bone Density DATE OF EXAM: 01/14/2022 COMPARISON: NONE CLINICAL HISTORY: Postmenopausal screening Height: 68 Weight: 163.3 FRAX RISK QUESTIONS: Alcohol (3 or more units per day): no Family History (Parent hip fracture): yes Glucocorticoids (More than 3mos): no (Ex: prednisone, prednisolone, methylprednisolone, dexamethasone, and hydrocortisone). History of Fracture in Adulthood: yes Secondary Osteoporosis: 1. Type 1 Diabetes: no 2. Hyperthyroidism: no 3. Menopause before 45: n/a 4. Malnutrition: no 5. Chronic liver disease: no Rheumatoid Arthritis: no Current Tobacco Use: no RISK FACTORS HISTORY OF: Surgery to Spine/Hip(right/left)/Wrist (right/left): no Family History of Osteoporosis: yes Active: no Diet low in dairy products/other sources of calcium: no Lost more than 2 inches in height since high school: yes MEDICATIONS: bi-polar meds, adhd meds Additional History: EXAM MEASUREMENTS: Bone mineral densitometry was performed using the [employer] System. Bone mineral density as measured about the Lumbar spine is: ----- L1-L4(G/cm2): 1.222 T Score Values are as follows: ----- L2: 1.3 ----- L3: 1.3 ----- L4: -0.3 ----- L1-L4: 0.3 Bone mineral density : baseline Bone mineral density about the R hip (g/cm2): 0.579 Bone mineral density about the L hip (g/cm2): 0.653 T Score values are as follows: -----R Neck: -3.3 -----L Neck: -2.8 -----R Total: -2.1 -----L Total: -1.8 Bone mineral density : baseline IMPRESSION: Osteoporosis (T Score less than -2.5). There is increased fracture risk and therapy is usually indicated based on age. Re-Screen 1-2 years. NOTE: T-SCORE=SD OF THE YOUNG ADULT MEAN.
== END | disposition home or self-care (01) ==
LOC: RADBDWWP 13:22
DX: Z13.820 Encounter for screening for osteoporosis (principal)
CPT/HCPCS: 77080

== ENCOUNTER → 2022-01-19 | Outpatient (CLI) | payer OTHER ==
--- NOTE | 2022-01-20 03:39 | MR ---
EXAMINATION TYPE: MR tspine/lspine wo con DATE OF EXAM: 01/19/2022 COMPARISON: Lumbar spine 04/28/2021 HISTORY: Mid back pain, low back pain that radiates down both legs, recent falls. The thoracic vertebra have normal alignment. There is no significant compression fracture. Thoracic s marian cord has normal signal pattern. There is no edema. There is no thoracic spinal stenosis. There is slight decreased signal on the T1 images in the T10 vertebral body that could relate to some mini mal edema. There is 5% loss of height. There is no thoracic paraspinal mass. Cervical spinal cord has normal signal pattern. The lumbar vertebrae have normal alignment. There is mild decreased signal in disc space narrowing th roughout the lumbar spine. There is no lumbar compression fracture. The lumbar nerve roots appear nor mal. There is no paraspinal mass. The sacroiliac joints are intact. The lumbar neural foramina are fa irly well maintained. IMPRESSION: Mild degenerative disc space changes in the lumbar spine that show no significant change compared to the old exam. No fracture. Slight decreased signal in the T10 vertebral body could relate to minimal edema from minimal 5% acute fracture.
== END | disposition home or self-care (01) ==
LOC: RADMRIMAIN 15:26
DX: M54.59 Other low back pain (principal)
CPT/HCPCS: 72146; 72148

== ENCOUNTER → 2022-05-20 | Outpatient (CLI) | payer OTHER ==
--- NOTE | 2022-05-20 15:57 | CT ---
EXAMINATION TYPE: CT abdomen pelvis wo/w con DATE OF EXAM: 05/20/2022 COMPARISON: No previous CT scan is available for comparison. HISTORY: Abnormal weight loss, 40lbs in [address] DLP: 1301.9 mGycm Automated exposure control for dose reduction was used. TECHNIQUE: Helical acquisition of images was performed from the lung bases through the pelvis. CONTRAST: Performed with Oral Contrast and with IV Contrast, patient injected with 100 mL of Isovue 300. FINDINGS: LUNG BASES: Right basal linear pulmonary atelectasis. LIVER/GB: Previous cholecystectomy. Unremarkable liver. PANCREAS: No significant abnormality is seen. SPLEEN: No significant abnormality is seen. ADRENALS: No significant abnormality is seen. KIDNEYS: Suspected few tiny bilateral renal cysts, otherwise unremarkable kidneys. FREE AIR: No free air is visualized. RETROPERITONEAL ADENOPATHY: None visualized REPRODUCTIVE ORGANS: Enlarged prostate. Unremarkable seminal vesicles. Penile prosthesis with a reser voir inseparable from the superior aspect of the urinary bladder. URINARY BLADDER: Nondistended. PELVIC ADENOPATHY: None visualized. OSSEOUS STRUCTURES: Right seventh and eighth rib subtle sclerotic areas which could represent healin g fractures. Subtle underlying lesion cannot be excluded. Further bone scan assessment can be conside red. No aggressive bone lesion. BOWEL: Unremarkable nondistended stomach, duodenum and small bowel. Significant fecal loading of the colon and rectum suggestive of constipation. No gross colonic mass however a small lesion cannot be excluded. Recommend correlation with colonoscopy results. OTHER: No sizable ascites. IMPRESSION: No definite suspicious lesion or lymphadenopathy seen in the abdomen or the pelvis. Incidental findin gs and recommendations as detailed above.
== END | disposition home or self-care (01) ==
LOC: RADCTMAIN 11:20
DX: R63.4 Abnormal weight loss (principal)
CPT/HCPCS: 74178; Q9967

== ENCOUNTER → 2022-07-13 | Outpatient (CLI) | payer OTHER ==
--- NOTE | 2022-07-13 16:17 | CTL ---
EXAMINATION TYPE: CT Low Dose Lung DATE OF EXAM ORDERED: 07/13/2022 HISTORY: Lung cancer screening CT DLP: 89.[address] CTDI: 2.6 mGy Automated exposure control for dose reduction was used. SCREENING VISIT: Initial screening exam COMPARISON: None TECHNIQUE: Low dose computed tomography scan was performed through the chest at 1 mm thick sections a nd reconstructed images in multiple planes at 1 mm and [address] DIAGNOSTIC QUALITY: Satisfactory FINDINGS: LUNG NODULES: None. LUNGS: COPD: Severity: Mild Fibrosis: Severity: None Lymph nodes: None Other findings: Left anterior calcified granuloma. RIGHT PLEURAL SPACE: Effusion: None Calcification: None Thickening: None Pneumothorax: None LEFT PLEURAL SPACE: Effusion: None Calcification: None Thickening: None Pneumothorax: None HEART: Heart Size: Normal Coronary Calcification: None Pericardial Effusion: None OTHER FINDINGS: Upper abdomen: None Bony thorax: None mild multilevel disc degeneration changes are seen throughout the spine. Supraclavicular region: None Other: The gallbladder surgically absent. IMPRESSION: 1. No clinically significant pulmonary nodules. 2. Mild COPD changes. CT LUNG RAD AND CT CHEST RECOMMENDATION: Lung-Rad 2 Benign Appearance or Behavior: Continue annual sc reening with LDCT in 12 months. S Modifier (other clinically significant findings): None
== END | disposition home or self-care (01) ==
LOC: RADCTMAIN 15:44
DX: Z12.2 Encounter for screening for malignant neoplasm of respiratory organs (principal); Z87.891 Personal history of nicotine dependence
CPT/HCPCS: 71271

== ENCOUNTER → 2022-09-03 | Outpatient (CLI) | payer OTHER ==
--- NOTE | 2022-09-03 15:28 | NM ---
EXAMINATION TYPE: NM bone scan whole body DATE OF EXAM: 09/03/2022 COMPARISON: NONE HISTORY: Abnormal findings seen diagnostic imaging Delayed whole-body scanning was performed following the injection of 21.3 mCi Tc 99m MDP. Images wer e acquired 3 hours post injection. FINDINGS: No suspicious photopenic defect or focal uptake within the ribs to correlate with the patient's CT fi ndings examination. There is some increased uptake in the first right metatarsophalangeal joint space likely degenerative in nature. Some mild focal uptake is within the bilateral knees likely degenerative in nature. No suspicious focal uptake is evident. IMPRESSION: 1. No suspicious changes to suggest metastatic disease.
== END | disposition home or self-care (01) ==
LOC: RADNMMAIN 10:22
DX: R93.7 Abnormal findings on diagnostic imaging of other parts of musculoskeletal system (principal)
CPT/HCPCS: 78306; A9503

== ENCOUNTER 2023-02-11 08:24 | Day surgery (SDC) | payer OTHER ==
[~2023-02-11 08:24] MED LIST changes: -IV FLUID CONTINUATION 1,000 ML IV ONE; +LIDOCAINE 1% (10MG/ML) FOR IV START INTRADERMA PRN; -MIDAZOLAM 2 MG/2 ML VIAL ONE; +ONDANSETRON 4 MG/2 ML VIAL IVP PRN; -ROPIVACAINE 5MG/ML 20ML VIAL ONE; -fentaNYL (PF) 50 MCG/ML 2 ML AMP ONE; -methylPREDNISolone ACETATE 40 MG/ML 1 ML VIAL ONE
[2023-02-11 09:30] VITALS: TEMP 97.3
[2023-02-11] MEDS ORDERED: PROPOFOL 10 MG/ML 20 ML VIAL IV ONE (09:31)
[2023-02-11] MEDS ORDERED: LIDOCAINE 2% INJ 20 MG/ML (2 ML VIAL) ONE (09:31)
--- NOTE | 2023-02-11 09:53 | P.PCN ---
Date of Procedure: 02/11/23 Procedure(s) Performed: Brief history: Patient is a pleasant 62-year-old white female scheduled for an elective upper endoscopy as well as colonoscopy as a part of evaluation of progressive weight loss of almost 30 pounds in the last 8 months duration. His been to many of chronic constipation. Occasional abdominal pain. Procedure performed: Esophagogastroduodenoscopy with biopsy Colonoscopy Preoperative diagnosis: Progressive weight loss of 60 pounds in 8 months duration Change in bowel habits Anesthesia: MAC Procedure: After informed consent was obtained from the patient was brought into the endoscopy unit and IV sedation was administered by anesthesia under continuous monitoring. Initially upper endoscopy was done. The Olympus GF 160 video endoscope was inserted inserted into the mouth and esophagus intubated without any difficulty and was gradually advanced into the stomach and duodenum and carefully examined. The bulb and second part of the duodenum appeared normal. Biopsies were done from the duodenum to rule out celiac disease. The scope was then withdrawn into the stomach adequately insufflated with air and upon careful examination the antrum had mild gastritis and biopsies were done from this area. Mucosa of the, cardia and fundus appeared normal. The scope was then withdrawn into the esophagus. The GE junction was located at 40 cm to the incisors. Very small sliding type hiatal hernia noted. It appeared regular with no erythema erosions or ulcerations. Rest of the esophagus appeared normal. Patient tolerated the procedure well. At this time the patient continued to remain sedation. Initial digital rectal examination was normal. Olympus CF 160 video colonoscope was then inserted into the rectum and gradually advanced to the cecum without any difficulty. Careful examination was performed as the scope was gradually being withdrawn. The prep was poor in some areas of the colon.. Irrigation was performed. The cecum, ascending colon, transverse colon, descending colon, sigmoid colon and rectum appeared normal. Descending colon; could not be adequately visualized because of thick retained stool in this area. Retroflexion was performed in the rectum and no lesions were noted. Patient tolerated the procedure well. Impression: 1. Upper endoscopy revealed small hiatal hernia and mild antral gastritis 2. Colonoscopy was within normal limits with no evidence of colorectal neoplasia. Recommendations: Findings of this examination were discussed with the patient as well as his family. He was advised to follow with the biopsy results. Recommend repeat screening colonoscopy in 10 years.
[2023-02-11 10:23] VITALS: BP 126/87; PULSE 75; RESP 15
== END 2023-02-11 10:50 | disposition home or self-care (01) ==
LOC: ORWHC2ENDO 08:24
PROVIDERS: ATTEND Internal Medicine Gastroenterology
DX: K29.50 Unspecified chronic gastritis without bleeding (principal); K59.09 Other constipation; K44.9 Diaphragmatic hernia without obstruction or gangrene; I10 Essential (primary) hypertension; E78.5 Hyperlipidemia, unspecified; G47.33 Obstructive sleep apnea (adult) (pediatric); F90.9 Attention-deficit hyperactivity disorder, unspecified type; F31.9 Bipolar disorder, unspecified; Z87.891 Personal history of nicotine dependence; Z88.2 Allergy status to sulfonamides; Z88.5 Allergy status to narcotic agent; Z91.030 Bee allergy status; Z79.51 Long term (current) use of inhaled steroids; Z79.1 Long term (current) use of non-steroidal anti-inflammatories (NSAID); Z79.899 Other long term (current) drug therapy
CPT/HCPCS: 88305; 45378; 43239; J2704; J2001

== ENCOUNTER → 2023-02-16 | Outpatient (CLI) | payer OTHER ==
--- NOTE | 2023-02-16 15:05 | CT ---
EXAMINATION TYPE: CT abdomen pelvis wo/w con DATE OF EXAM: 02/16/2023 COMPARISON: Prior CT abdomen and pelvis May 20, 2022 HISTORY: abnormal weight loss CT DLP: 775.40 mGycm, Automated Exposure Control for Dose Reduction was Utilized. CONTRAST: CT scan of the abdomen and pelvis is performed with oral and without and with IV Contrast, patient in jected with 70 mL of Isovue 370. FINDINGS: LUNG BASES: Mild right basilar linear scarring and/or atelectasis is redemonstrated. LIVER/GB: Cholecystectomy clips are redemonstrated. PANCREAS: No significant abnormality is seen. SPLEEN: No significant abnormality is seen. ADRENALS: No significant abnormality is seen. KIDNEYS: No renal calculi are seen bilaterally. There is symmetric uptake and excretion bilaterally without concerning solid or cystic mass or hydronephrosis seen. Incidental subcentimeter thin-walled cyst lower pole right kidney delayed series 10 image 38. BOWEL: Oral contrast extends to level of proximal transverse colon. Evaluation of the distal bowel sl ightly suboptimal due to lack of contrast. There is no suspicious small or large bowel dilatation. Mo derate fecal prominence in the transverse colon is seen. Slight redundancy of the sigmoid colon PROSTATE/SEMINAL VESICLES: Enlarged prostate consistent with BPH is redemonstrated. Penile prosthesis with anterior pelvic reservoir or pump is again seen. LYMPH NODES: No greater than 1cm abdominal or pelvic lymph nodes are appreciated. OSSEOUS STRUCTURES: Moderate disc space narrowing and spurring L2-L3 level. Moderate disc space narro wing with sclerosis L5-S1 level OTHER: No significant additional abnormality is seen. IMPRESSION: No suspicious new mass or adenopathy to suggest neoplasm. Moderate colonic fecal stasis. No bowel obstruction. Enlarged prostate consistent with BPH is redemonstrated.
== END | disposition home or self-care (01) ==
LOC: RADCTMAIN 13:01
DX: N40.0 Benign prostatic hyperplasia without lower urinary tract symptoms (principal); R63.4 Abnormal weight loss; R19.5 Other fecal abnormalities
CPT/HCPCS: 74178; Q9967

== ENCOUNTER → 2023-03-18 | Outpatient (CLI) | payer OTHER ==
[~2023-03-18] MED LIST changes: +IODINE/POTASSIUM IODIDE 14 ML BOTTLE ONE; -LACTATED RINGERS 1,000 ML IV SCH; -LIDOCAINE 1% (10MG/ML) FOR IV START INTRADERMA PRN; -ONDANSETRON 4 MG/2 ML VIAL IVP PRN
--- NOTE | 2023-03-21 06:54 | NM ---
EXAMINATION TYPE: NM DatScan Brain SPECT DATE OF EXAM: 03/18/2023 COMPARISON: NONE HISTORY: Tremors. TECHNIQUE: 10 drops of Lugol's solution was administered 1 hour prior to injection as a thyroid bloc nikky agent. After the administration of 4.61 mCi I-123 Ioflupane DaTscan. Images obtained 3 hours p ost injection. SPECT images of the brain were acquired with axial and coronal reconstructions. FINDINGS: Balanced strainer loss to the caudate and putamen nuclei. This appearance is consistent with the loss of the pre-synaptic dopaminergic terminals. IMPRESSION: This abnormal appearance is supportive of a clinical diagnosis of DLB, idiopathic PD, Parkinson?s dem entia complex, or PS.
== END | disposition home or self-care (01) ==
LOC: RADNMMAIN 10:40
PROVIDERS: ATTEND Psychiatry & Neurology Neurology
DX: G20 Parkinson's disease (principal)
CPT/HCPCS: 78803; A9584

== ENCOUNTER → 2023-03-18 | Outpatient (CLI) | payer OTHER ==
[2023-03-18 19:23] LABS: African American GFR (CKD) 80.6 (60.0-200.0); Albumin 3.9 g/dL (3.8-4.9); Albumin/Globulin Ratio 1.67 (1.60-3.17); Anion Gap 7.2 mmol/L (10.00-18.00); BUN/Creat Ratio 20.36 Ratio (12.00-20.00); Blood Urea Nitrogen 22.8 mg/dL (9.0-27.0); Calcium 9.5 mg/dL (8.7-10.3); Globulin 2.3 g/dL (1.6-3.3); Non-African American GFR(CKD) 69.5 (60.0-200.0); Potassium 5.2 mmol/L (3.5-5.5); Total Bilirubin 0.4 mg/dL (0.30-1.20); Total Protein 6.2 g/dL (6.2-8.2)
[2023-03-18 20:45] LABS: Basophils # (A) 0.05 X 10*3/uL (0.00-0.10); Basophils % (A) 0.4 %; Eosinophils # (A) 0.05 X 10*3/uL (0.04-0.35); Eosinophils % (A) 0.4 %; HCT 38.3 % (39.6-50.0); HGB 12.6 g/dL (13.0-17.0); Immature Grans, Automated 0.5 %; Lymphocytes # (A) 1.03 X 10*3/uL (0.90-5.00); MCH 31.6 pg (27.0-32.0); MCHC 32.9 g/dL (32.0-37.0); Mean Platelet Volume 9.9 fL (9.5-12.2); Monocytes # (A) 1.12 X 10*3/uL (0.20-1.00); Monocytes % (A) 8.7 %; NRBC Per 100 WBC 0 /100 WBCS (0.0-0.0); Platelet Count 239 X 10*3/uL (140-440); RBC 3.99 X 10*6/uL (4.40-5.60); RDW 13.6 % (11.5-14.5); WBC 12.81 X 10*3/uL (4.50-10.00)
== END | disposition home or self-care (01) ==
LOC: LABWHC1 12:18
PROVIDERS: ATTEND Dermatology
DX: L20.89 Other atopic dermatitis (principal)
CPT/HCPCS: 36415; 80053; 85025

== ENCOUNTER → 2023-05-11 | Outpatient (CLI) | payer OTHER ==
--- NOTE | 2023-05-11 10:52 | CT ---
EXAMINATION TYPE: CT abdomen pelvis wo con DATE OF EXAM: 05/11/2023 COMPARISON: 02/16/2023 HISTORY: Abnormal weight loss. CT DLP: 591.8 mGycm Examination of the solid and hollow viscera is limited given the lack of contrast. FINDINGS: LUNG BASES: The gallbladder is surgically absent. No evidence for infiltrate. LIVER/GB: The gallbladder is unremarkable. No space-occupying hepatic lesion. PANCREAS: No pancreatic mass identified. No inflammatory process seen. SPLEEN: No evidence for splenomegaly. No intrasplenic lesions seen. ADRENALS: No adrenal nodules identified. No evidence for thickening. KIDNEYS: No evidence for renal mass. No nephrolithiasis. No hydronephrosis. BOWEL: Appendix has a normal appearance. No evidence of bowel obstruction. No inflammatory process. Lymph nodes: No evidence for adenopathy greater than 1 cm. Abdominal aorta: Atheromatous changes seen. No evidence for aneurysm. Genital organs: No significant abnormality. Other: Penile prosthesis with a reservoir noted in the anterior pelvis. IMPRESSION: NO SIGNIFICANT ABNORMALITY TO ACCOUNT FOR THE PATIENT'S SYMPTOMS.
--- NOTE | 2023-05-11 13:31 | FL ---
EXAMINATION TYPE: FL esophagus cervic/pharynx DATE OF EXAM: 05/11/2023 COMPARISON: None HISTORY: Dysphagia TECHNIQUE: Double air contrast technique FINDINGS: Fluoroscopy time: 19 seconds. DAP: 1481.15 Centimeters dilated to normal caliber and has a normal contour to the gastroesophageal junction. Panda roesophageal junction opens to normal caliber. Secondary and tertiary contractions are evident within the distal half of the esophagus. There is incomplete stripping esophageal bolus in the horizontal d rinking position. No reflux was evident. IMPRESSION: 1. Presbyesophagus.
== END | disposition home or self-care (01) ==
LOC: RADCTMAIN 08:45
PROVIDERS: ATTEND Internal Medicine Gastroenterology
DX: K22.89 Other specified disease of esophagus (principal); R63.4 Abnormal weight loss; R13.10 Dysphagia, unspecified
CPT/HCPCS: 74176; 74210

== ENCOUNTER → 2023-07-21 | Outpatient (CLI) | payer OTHER ==
--- NOTE | 2023-07-21 12:26 | P.SLEEP ---
History of Present Illness DATE: 07/21/2023 CONSULTATION/NEW PATIENT EVALUATION HISTORY OF PRESENT ILLNESS/SLEEP-WAKE EVALUATION: 62 year old gentleman had been evaluated in the sleep center for possible obstructive sleep apnea hypopnea syndrome. Patient has history of obstructive sleep apnea diagnosed in another institution 8 years ago, patient was on treatment with CPAP. But after moving from another [facility] [place] [facility] to [place] she stopped using CPAP for about 5 years ago. SLEEP SCHEDULE: Usually sleep schedule not. Regular, but usually from around 2- 3 AM until 8 AM and get out of bed around 10 AM. FALLING ASLEEP: Occasionally patient has difficulties with the falling asleep, has TV set and bedroom. DURING SLEEP: Patient sleeps in different positions with snoring and awakenings from sleep with nocturia 2 times. Positive history of sweating, heartburn and sleep talking. No history of hypnogogical hallucinations, sleep paralysis, or cataplexy. DURING THE DAY/WAKE STATE: In the morning patient wake up tired, has difficulties to pay attention, falling asleep during the day, has problems with memory, concentration, irritability depression. Amber sleepiness scale is borderline 9. Sometimes patient may take naps up to 2 hours during the day. PAST MEDICAL HISTORY: Hypertension, ADHD, depression, anxiety, bipolar, Parkinson, hyperlipidemia, hiatal hernia, stroke in 2014 and 2022 with some residual right-sided weakness. PAST SURGICAL HISTORY: Tonsillectomy, adenoidectomy, surgical treatment for nasal septum deviation, penis implant. MEDICATIONS: Losartan 25 mg once a day, doxepin 30 mg once a day, pravastatin 80 mg once a day, Flomax 0.4 mg once a day, famotidine 40 mg once a day, Sinemet 25/103 times a day, cetirizine 20 mg once a day. SOCIAL HISTORY: Positive history of smoking for about 7 years 1 pack a day, quit in 2018, alcohol consumption none. FAMILY HISTORY: Hypertension, epilepsy, asthma, snoring, cancer, mental illness. REVIEW OF SYSTEMS: Going, awakenings from sleep, sleepiness during the day. No fevers. No double vision. No recent chest pain. No shortness of breath. No abdominal pain. No bleeding episodes. No blood in urine. No seizure episodes. PHYSICAL EXAMINATION: GENERAL: A pleasant patient without any distress. VITAL SIGNS: BP 121/63, HR 85, RR 18, weight 190.2 pounds, height 5 foot 7-3/4 inches, body mass index 29.1. HEENT: PERRLA, EOMI. Evaluation of oropharynx showed tongue protrudes midline, low position of soft palate Mallampati 4. NECK: Supple. No JVD. Thyroid is not palpable. 15 inches in circumference. LUNGS: Clear to percussion and to auscultation. Good air exchange. No wheezing or rhonchi. HEART: S1, S2 regular. No murmurs, gallops or rubs. ABDOMEN: Soft and nontender. Bowel sounds are present. No organomegaly appreciated. EXTREMITIES: No clubbing or cyanosis. CRAWLER TRACTOR OPERATOR: Awake, alert, and oriented x3. Cranial nerves 2 to 7 intact. There is no fasciculation or atrophy noted. Mild right-sided weakness. ASSESSMENT: 1. Snoring, awakenings from sleep with nocturia, extremely low position of soft palate Mallampati 4, sleepiness, history of obstructive sleep apnea hypopnea syndrome in the past. Obstructive sleep apnea hypopnea syndrome. 2. Hypertension. 3. Status post stroke in 2014 and 2022 with mild residual right-sided weakness. 4. History of Parkinson. 5 history of ADHD. 6 . History of depression, anxiety and bipolar. 7. Hyperlipidemia. 8. History of hiatal hernia. 9 . Status post tonsillectomy and adenoidectomy. 10. Status post nasal surgery for nasal septum deviation. PLAN: 1. Polysomnography for evaluation of patient's breathing during sleep. 2. CPAP/BiPAP titration if sleep study confirms obstructive sleep apnea- hypopnea syndrome. 3. Preferable position during sleep on the side. 4. No driving if patient feels any sleepiness. Patient is aware of civil and criminal liability for unsafe driving. 5. Sleep hygiene with regular sleep time for at least 7.5-8 hours. 6. Watching weight. Thank you very much for referring this patient for consultation. Sincerely, Otoniel Umanzor MD, PhD, FAASM. Diplomat of [employer], Sleep Medicine Board by [employer] [facility] Past Medical History Past Medical History: GERD/Reflux, Hyperlipidemia, Hypertension, Prostate Disorder, Sleep Apnea/CPAP/BIPAP Additional Past Medical History / Comment(s): CURRENT: WEIGHT LOSS, CONSTIPATION. USES CPAP History of Any Multi-Drug Resistant Organisms: None Reported Past Surgical History: Adenoidectomy, Appendectomy, Cholecystectomy, Orthopedic Surgery, Tonsillectomy Additional Past Surgical History / Comment(s): BILAT HEEL SPURS REMOVED. DEVIATED SEPTUM REPAIRED. PENILE IMPLANT 09/2020. PAIN CLINIC PROCEDURE Past Anesthesia/Blood Transfusion Reactions: No Reported Reaction Past Psychological History: ADD/ADHD, Bipolar Smoking Status: Former smoker Past Alcohol Use History: None Reported Additional Past Alcohol Use History / Comment(s): QUIT SMOKING 2018 Past Drug Use History: None Reported - Past Family History Mother Family Medical History: Cancer Medications and Allergies Home Medications Medication Instructions Recorded Confirmed Type Cetirizine HCl 10 mg PO QAM 09/30/20 02/11/23 History Divalproex [Depakote] 500 mg PO HS 09/30/20 02/11/23 History Losartan [Cozaar] 25 mg PO QAM 09/30/20 02/11/23 History Lurasidone [Latuda] 60 mg PO HS 09/30/20 02/11/23 History Montelukast [Singulair] 10 mg PO QAM 09/30/20 02/11/23 History Pantoprazole Sodium 40 mg PO QAM 09/30/20 02/11/23 History Pravastatin Sodium [Pravachol] 80 mg PO HS 09/30/20 02/11/23 History Tamsulosin [Flomax] 0.4 mg PO HS 09/30/20 02/11/23 History hydrOXYzine pamoate [hydrOXYzine 50 mg PO BID 09/30/20 02/11/23 History PAMOATE] Baclofen [Lioresal] 20 mg PO BID 04/15/21 02/11/23 History Ferrous Sulfate [Feosol] 325 mg PO BID 04/15/21 02/11/23 History Calcium Carbonate [Calcium] 600 mg PO DAILY 02/07/23 02/11/23 History Celecoxib [CeleBREX] 100 mg PO BID 02/07/23 02/11/23 History Docusate [Colace] 10 mg PO BID 02/07/23 02/11/23 History polyethylene glycoL 3350 [Miralax] 1 dose PO Q48H 02/07/23 02/11/23 History Allergies Allergy/AdvReac Type Severity Reaction Status Date / Time bee venom protein (honey bee) Allergy Anaphylaxis Verified 02/11/23 08:56 codeine Allergy Dyspnea Verified 02/11/23 08:56 Sulfa (Sulfonamide Allergy Dyspnea Verified 02/11/23 08:56 Antibiotics) Sleep Note - Sleep Note Sleep Note: Temperature: Pulse Rate: Respiratory Rate: Blood Pressure: SpO2: Height: Weight: BMI: Neck Circumference:
== END ==
LOC: 3 N SLEEP 11:10
PROVIDERS: ATTEND Internal Medicine
DX: G47.33 Obstructive sleep apnea (adult) (pediatric) (principal); I10 Essential (primary) hypertension; E78.5 Hyperlipidemia, unspecified; G20 Parkinson's disease; F90.9 Attention-deficit hyperactivity disorder, unspecified type; F41.9 Anxiety disorder, unspecified; F31.9 Bipolar disorder, unspecified; Z86.73 Personal history of transient ischemic attack (TIA), and cerebral infarction without residual deficits; Z98.890 Other specified postprocedural states; Z88.5 Allergy status to narcotic agent; Z91.030 Bee allergy status; Z88.2 Allergy status to sulfonamides
CPT/HCPCS: 99211

== ENCOUNTER → 2025-02-28 | Outpatient (CLI) | payer OTHER ==
[2025-02-28 14:02] VITALS: BP 114/77; PULSE 72; RESP 16; TEMP 98.1
--- NOTE | 2025-02-28 14:39 | P.PAINCN ---
History of Present Illness - History of Present Illness This is a 64-year-old pleasant gentleman who has come to pain clinic for low b ack pain. Patient relates, pain has been going on in the low back area since 2019. Patient cannot recall any trauma or accident. Patient describes his pain as throbbing, achy, spasm in character intensity goes up to 7/10. Physical activity, standing for few minutes, walking, sweeping makes his pain worse. Taking rest and slight bending of the spine makes his pain slightly tolerable. Patient denies any new bowel bladder dysfunction. Patient denies any new motor symptoms. Although patient has got Parkinson's disease and neuropathy which hinders his mobility. Past Medical History Past Medical History: GERD/Reflux, Hyperlipidemia, Hypertension, Prostate Disorder, Sleep Apnea/CPAP/BIPAP Additional Past Medical History / Comment(s): CURRENT: WEIGHT LOSS, CONSTIPATION. USES CPAP History of Any Multi-Drug Resistant Organisms: None Reported Past Surgical History: Adenoidectomy, Appendectomy, Cholecystectomy, Orthopedic Surgery, Tonsillectomy Additional Past Surgical History / Comment(s): BILAT HEEL SPURS REMOVED. DEVIATED SEPTUM REPAIRED. PENILE IMPLANT 09/2020. PAIN CLINIC PROCEDURE Past Anesthesia/Blood Transfusion Reactions: No Reported Reaction Past Psychological History: ADD/ADHD, Bipolar Smoking Status: Former smoker Past Alcohol Use History: None Reported Additional Past Alcohol Use History / Comment(s): QUIT SMOKING 2018 Past Drug Use History: None Reported - Past Family History Mother Family Medical History: Cancer Medications and Allergies Home Medications Medication Instructions Recorded Confirmed Type Cetirizine HCl 10 mg PO QAM 09/30/20 02/11/23 History Divalproex [Depakote] 500 mg PO HS 09/30/20 02/11/23 History Losartan [Cozaar] 25 mg PO QAM 09/30/20 02/11/23 History Lurasidone [Latuda] 60 mg PO HS 09/30/20 02/11/23 History Montelukast [Singulair] 10 mg PO QAM 09/30/20 02/11/23 History Pantoprazole Sodium 40 mg PO QAM 09/30/20 02/11/23 History Pravastatin Sodium [Pravachol] 80 mg PO HS 09/30/20 02/11/23 History Tamsulosin [Flomax] 0.4 mg PO HS 09/30/20 02/11/23 History hydrOXYzine pamoate [hydrOXYzine 50 mg PO BID 09/30/20 02/11/23 History PAMOATE] Baclofen [Lioresal] 20 mg PO BID 04/15/21 02/11/23 History Ferrous Sulfate [Feosol] 325 mg PO BID 04/15/21 02/11/23 History Calcium Carbonate [Calcium] 600 mg PO DAILY 02/07/23 02/11/23 History Celecoxib [CeleBREX] 100 mg PO BID 02/07/23 02/11/23 History Docusate [Colace] 10 mg PO BID 02/07/23 02/11/23 History polyethylene glycoL 3350 [Miralax] 1 dose PO Q48H 02/07/23 02/11/23 History Allergies Allergy/AdvReac Type Severity Reaction Status Date / Time bee venom protein (honey bee) Allergy Anaphylaxis Verified 02/11/23 08:56 codeine Allergy Dyspnea Verified 02/11/23 08:56 Sulfa (Sulfonamide Allergy Dyspnea Verified 02/11/23 08:56 Antibiotics) Physical Exam Vitals: Vital Signs Temp Pulse Resp BP Pulse Ox 02/28/25 13:59 98.1 F 72 16 114/77 96 Intake and Output 02/27/25 02/28/25 02/28/25 22:59 06:59 14:59 Other: Weight 78.018 kg Physical Examinations : -Constitutiona : Cooperative , not in acute distress . -HEENT : nech : supple , no Lymphadenopathy , normal thyroid size . : eyes : no ptosis , no icterus, no photophobia . - neurologic : Cranial nerve II to XII intact , no focal neurological deffecit . -psychatric : alert , oriented X 3 , appropriate affect , intact judgment and insight . -Lymphatic : no Lymphadenopathy . - musculoskeltal : Lumbosacral spine. Moderate tenderness in the midline and paraspinal areas. Mild to moderate rest paraspinal muscle spasm. Lumbosacral spine flexion hyperextension rotations is limited and painful. Especially hyperextension is most painful. Lower extremity, hip knee ankle flexion extension 5/5 bilaterally. Deep tendon reflexes of knees and ankles 2+ bilaterally. Sensation to touch grossly intact bilaterally. Straight leg test questionably positive bilaterally. Gaenslen's test negative bilaterally. Sacroiliac joint compression test negative bilaterally. C Assessment and Plan Assessment: Low back pain. Lumbar spine spondylosis. Lumbar degenerative disc disease. Lumbar radiculopathy. Plan: Is no MRI or CT scan to review. Patient denies having any MRI or CT scan of lumbar spine done in last many years. Will get an MRI of lumbosacral spine without contrast. Depending on the MRI report will schedule the procedure if necessary. Discussed with the patient about the plan. He understands and all questions were answered. PQRS Measure Charge Sheet Mode of Arrival: Ambulatory - Pain Location Lower Back Non-Pharmacological Interventions: Ice, Sitting Pharmacological Interventions: Medication PQRS Narrative: Blood Pressure 114/77 Pain Intensity [Lower Back] 7 Scale Used Numeric (1 - 10) Hx Alcohol Use (MH) No Home Medications: Ambulatory Orders Cetirizine HCl 10 mg PO QAM 09/30/20 Divalproex [Depakote] 500 mg PO HS 09/30/20 Losartan [Cozaar] 25 mg PO QAM 09/30/20 Lurasidone [Latuda] 60 mg PO HS 09/30/20 Montelukast [Singulair] 10 mg PO QAM 09/30/20 Pantoprazole Sodium 40 mg PO QAM 09/30/20 Pravastatin Sodium [Pravachol] 80 mg PO HS 09/30/20 Tamsulosin [Flomax] 0.4 mg PO HS 09/30/20 hydrOXYzine pamoate [hydrOXYzine PAMOATE] 50 mg PO BID 09/30/20 Baclofen [Lioresal] 20 mg PO BID 04/15/21 Ferrous Sulfate [Feosol] 325 mg PO BID 04/15/21 Calcium Carbonate [Calcium] 600 mg PO DAILY 02/07/23 Celecoxib [CeleBREX] 100 mg PO BID 02/07/23 Docusate [Colace] 10 mg PO BID 02/07/23 polyethylene glycoL 3350 [Miralax] 1 dose PO Q48H 02/07/23
== END ==
LOC: PNWHC3 13:16
PROVIDERS: ATTEND Pain Medicine Interventional Pain Medicine
DX: M47.26 Other spondylosis with radiculopathy, lumbar region (principal); M51.16 Intervertebral disc disorders with radiculopathy, lumbar region; Z91.030 Bee allergy status; Z88.5 Allergy status to narcotic agent; Z88.2 Allergy status to sulfonamides
CPT/HCPCS: 99202

== ENCOUNTER → 2025-03-26 | Outpatient (CLI) | payer OTHER ==
--- NOTE | 2025-03-26 13:45 | MR ---
EXAMINATION TYPE: MR lumbar spine wo con DATE OF EXAM: 03/26/2025 12:02 PM COMPARISON: None. CLINICAL INDICATION: Male, 64 years old with history of M54.16 RADICULOPATHY, LUMBAR REGION, Chronic lower back pain. IV Contrast: cc (None if empty) TECHNIQUE: Multiplanar, multisequence images of the lumbar spine were acquired without IV contrast. L1-L2: Normal disc appearance without desiccation. No herniation, protrusion or disc bulging. No ca nal stenosis is present. Foramina are patent bilaterally. L2-L3: Severe disc desiccation with minimal posterior disc bulge. No herniation or protrusion. No natanael tral stenosis. Facet joint arthropathy of mild to moderate bilateral foraminal encroachment. L3-L4: Normal disc appearance without desiccation. No herniation, protrusion or disc bulging. No ca nal stenosis is present. Foramina are patent bilaterally. L4-L5: Normal disc appearance without desiccation. No herniation, protrusion or disc bulging. No ca nal stenosis is present. Foramina are patent bilaterally. L5-S1: Severe disc desiccation with degenerative endplate marrow change. Posterior disc bulge with mi ld effacement of ventral thecal sac. No evidence for herniation or protrusion. No lateral recess sten osis. Mild facet joint arthropathy. Lumbar segments are intact. No paraspinal masses are identified. Conus medullaris has a normal appe arance. IMPRESSION: 1. Multilevel degenerative disc disease. 2. Foraminal encroachment at L2-3 as discussed. Disc bulging is noted. [facility], , 03/26/2025 1:42 PM
== END | disposition home or self-care (01) ==
LOC: RADMRIMAIN 11:23
PROVIDERS: ATTEND Pain Medicine Interventional Pain Medicine
DX: M51.16 Intervertebral disc disorders with radiculopathy, lumbar region (principal)
CPT/HCPCS: 72148

== ENCOUNTER → 2025-04-04 | Outpatient (CLI) | payer OTHER ==
[2025-04-04 12:54] VITALS: BP 126/69; PULSE 76; RESP 16; TEMP 97.3
--- NOTE | 2025-04-04 14:56 | P.PAINPG ---
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 Pain level is provoked at 8 /10 in intensity, constant, predominantly axial, localized in the lumbar spine, sharp in character w occasional shooting towards the buttocks. Pain is provoked by walking/ standing for periods > 20 min. Pain is alleviated with PT x 6 wks in Fall 2022, physician guided home exercises every other day since Fall 2022, chiropractic treatments monthly since 2024 which he is currently in, acupuncture treatments 1-2 times weekly since Jan 2025 which he is currently in, heat, medications, topical, use of a TENS unit, repositioning and rest. Oswestry axial pain score at 26. Interventional pain procedures completed include BL RFA L3-L4 (2020) Patient is currently on Baclofen, Celebrex, FioFreeze Patient denies any side effects of the medication(s), denies excessive drowsiness or sleepiness, denies suicidal ideation and reports that the current pain medication is helping to control the pain and improve activities of daily living. Patient denies any motor or sensory deficits. Patient denies any fever or night sweats, denies any change in the bowel movements or urination. Physical Examination: -Constitutional: Cooperative. Not in acute distress . - Neurologic: Cranial nerve II to XII intact. No focal neurological deficits. - Psychatric: Alert & oriented x 3. Matching mood & appropriate affect. Judgment and insight intact. - Musculoskeletal: Cervical spine: Muscle bulk/ tone/ strength in the bilateral upper extremities normal Vertebral body tenderness to palpation over Spurling test positive Distraction test positive Facet loading test positive TTP Thoracic spine Muscle bulk / tone/ strength in the bilateral paraspinal muscles normal Vertebral body tender to palpation over Facet loading test positive TTP Lumbar spine: Motor bulk/ tone/ strength lower extremities , thigh and legs : 5/5 Deep tendon reflexes : Normal Knee Jerk. Normal Ankle Jerk . Vertebral body tenderness to palpation over L5 [place] Test positive BL L5-S1 Lumbar Facet Loading Test positive Straight Leg Raise: positive at 30 degrees right side/ left side Gaenslen's Test positive Sacral spine : Severe tenderness over the Sacroiliac joint: right side / left side Range of motion: Flexion of the lumbar spine <60 degrees Range of motion: Extension of the lumbar spine <20 degrees Gaenslen's Test positive right side / left side Ángel test: positive right side / left side Thigh Thrust Test positive right side / left side Sacral Thrust Test positive right side / left side imaging Imaging: MRI non contrast lumbar spine from 03/26/2025 reviewed Assessment and plan: Chronic LBP secondary to radiculopathy, spondylosis with facet arthropathy without myelopathy Recommendation of UDAY L5-S1 and medication management. Opiate/narcotic agreement signed 04/04/2025. Delphi 7.5/325 mg #60 with 1 RF. Use, side effects, adverse reactions and safe storage discussed. Risks, benefits of procedure discussed and pt verbalized understanding. Admits to anticoagulant use or medical history of diabetes. Protocol for discontinuation/ continuation of medications ernesto procedure discussed. Minimal anesthesia provided, if clinically indicated, consisting of Versed and Fentanyl. All questions answered. I have spent less than 30 minutes on patient care today. Dr Kennedy was evangelina ilable by phone for the evaluation of this patient. The time was used to review the medical records including relevant urine studies and Prescription history (MAPs), review of the available imaging, evaluation and examination of the patient, coordination of care with the medical staff and if applicable referring physicians, as well as creation of the medical record - Pain Location Bilateral Lower Back Non-Pharmacological Interventions: Heat, Ice, Inactivity, Position/Reposition, Relaxation Technique, Sitting, Stretching Pharmacological Interventions: Epidural, PRN Medication, Scheduled Medication, Topical Medication PQRS Narrative: Hx Alcohol Use (MH) No Home Medications: Ambulatory Orders Cetirizine HCl 10 mg PO QAM 09/30/20 Divalproex [Depakote] 500 mg PO HS 09/30/20 Losartan [Cozaar] 25 mg PO QAM 09/30/20 Lurasidone [Latuda] 60 mg PO HS 09/30/20 Montelukast [Singulair] 10 mg PO QAM 09/30/20 Pantoprazole Sodium 40 mg PO QAM 09/30/20 Pravastatin Sodium [Pravachol] 80 mg PO HS 09/30/20 Tamsulosin [Flomax] 0.4 mg PO HS 09/30/20 hydrOXYzine pamoate [hydrOXYzine PAMOATE] 50 mg PO BID 09/30/20 Baclofen [Lioresal] 20 mg PO BID 04/15/21 Ferrous Sulfate [Feosol] 325 mg PO BID 04/15/21 Calcium Carbonate [Calcium] 600 mg PO DAILY 02/07/23 Celecoxib [CeleBREX] 100 mg PO BID 02/07/23 Docusate [Colace] 10 mg PO BID 02/07/23 polyethylene glycoL 3350 [Miralax] 1 dose PO Q48H 02/07/23 HYDROcodone/APAP 7.5-325MG [Delphi 7.5-325] 1 tab PO BID PRN 30 Days #60 tab 04/04/25 Controlled Substance Measures - Controlled Substance Measures Is patient prescribed a controlled substance at discharge?: Yes When asked, does pt state using other controlled substances?: No If prescribed controlled substance>3 days was MAPS reviewed?: Yes If Rx opioid, was Start Talking consent form obtained?: Yes Was information provided regarding opioid addiction?: Yes
== END ==
LOC: PNWHC3 12:07
PROVIDERS: ATTEND Specialist
DX: M47.26 Other spondylosis with radiculopathy, lumbar region (principal); Z91.030 Bee allergy status; Z88.5 Allergy status to narcotic agent; Z88.2 Allergy status to sulfonamides
CPT/HCPCS: 99211

== ENCOUNTER 2025-04-16 12:27 | Day surgery (SDC) | payer OTHER ==
[2025-04-12 11:43] VITALS: BMI 26.6
[~2025-04-16 12:27] MED LIST changes: -IODINE/POTASSIUM IODIDE 14 ML BOTTLE ONE; +LACTATED RINGERS 1,000 ML IV SCH
[2025-04-16 13:19] VITALS: RESP 16; TEMP 97.5
[2025-04-16] MEDS ORDERED: methylPREDNISolone ACETATE 80 MG/ML 1 ML VIAL ONE (13:50)
[2025-04-16] MEDS ORDERED: IOPAMIDOL M200 10 ML VIAL ONE (13:50)
--- NOTE | 2025-04-16 13:56 | P.PCN ---
Date of Procedure: 04/16/25 Procedure(s) Performed: PREOPERATIVE DIAGNOSIS: 1- Lumbar Degenerative Disc Diseases 2-Lumbar spondylosis with Facet arthropathy without myelopathy. 3-lumbar radiculopathy POSTOPERATIVE DIAGNOSIS: 1-lumbar degenerative disc disease. 2-lumbar spondylosis with facet arthropathy without myelopathy. 3-lumbar radiculopathy. PROCEDURE 1. Lumbar epidural steroid injection under fluoroscopic guidance at the L5-S1 level. (Fluoroscopy imaging was available in radiology department) 2. Lumbar epidurogram. ANESTHESIA: Lidocaine 1% 3 and then only. EBL: Minimal PROCEDURE INDICATION: The patient with low back pain and radiculitis symptoms unresponsive to conservative treatment. Fluoroscopy was used to optimize visualization of the needle placement and to maximize safety. PROCEDURE DESCRIPTION / TECHNIQUE: The patient was seen and identified in the preoperative area. Risks, benefits, complications including but not limited to infections ,bleeding ,allergic reaction to the medications ,nerve damage and not complete pain releife , and alternatives were discussed with the patient. The patient agreed to proceed with the procedure and signed the consent, and vital signs were stable. Patient was taken to the OR and time out was completed. The patient was placed in the prone position on procedure table and a pillow was placed under the abdomen to reduce lumbar lordosis. The lumbosacral area was prepped and draped in the usual sterile fashion.ere closely monitored during the procedure. Vital signs was monitered during the entire procedure. Using anterior-posterior fluoroscopy, the L5-S1 interlaminar space was identified and the skin over this site was marked and then infiltrated with 1% lidocaine subcutaneously. Subsequently, a 20-gauge Tuohy epidural needle was inserted and advanced toward the epidural space using the ``Loss of resistance technique and guided by AP and lateral fluoroscopy. The correct needle position in the epidural space was verified with the injection of 2 mL of the water soluble contrast dye Isovue 200 contrast and observing an excellent epidurogram with the epidural spread of the dye, after negative aspiration for blood and CSF and in the absence of paresthesias. Again after negative aspiration, a 6 ml mixture containing 80 mg of Depo-medrol ( Preservetive Free ), and 2 ml of preservative free Normal Saline, and 2 ml of preservative free lidocaine 1% solution was injected and a washout of epidurogram was seen. Needle was withdrawn intact, skin was cleansed, and bandages were applied. COMPLICATIONS: None DISPOSITION / PLANS: The patient was placed in a supine position and transferred to the recovery area in a stable condition for observation. There was no evidence of lower extremity motor or sensory deficit after the procedure. Patient was discharged from the recovery room after meeting discharge criteria. Home discharge instructions were given to the patient by the staff. The patient was reexamined prior to discharge. The patient will schedule a follow up in the clinic in 2-4 weeks.
--- NOTE | 2025-04-16 14:13 | FL ---
EXAMINATION TYPE: FL guided pain mgmt statistic DATE OF EXAM: 04/16/2025 CLINICAL INDICATION: Male, 64 years old with history of LESI; PHH, pain TECHNIQUE: Fluoroscopy. COMPARISON: None. FINDINGS: Fluoroscopic guidance was provided during pain relief procedure performed by Dr. Kennedy . A total of 2.2 seconds of fluoroscopic time was utilized during the procedure and one image was ac quired. Image acquired shows needle localization at L5 level. Degeneration changes of the visualized joints. Total DAP: 0.94748 mGym2. IMPRESSION: As Above. [facility], , 04/16/2025 2:10 PM
[2025-04-16 14:20] VITALS: BP 94/72; PULSE 64
== END 2025-04-16 14:31 | disposition home or self-care (01) ==
LOC: ORPAIN 12:27
PROVIDERS: ATTEND Specialist
DX: M47.26 Other spondylosis with radiculopathy, lumbar region (principal); M51.16 Intervertebral disc disorders with radiculopathy, lumbar region; Z88.2 Allergy status to sulfonamides; Z88.5 Allergy status to narcotic agent; Z91.030 Bee allergy status
CPT/HCPCS: 62323; Q9966; J1010

== ENCOUNTER → 2025-05-29 | Outpatient (CLI) | payer OTHER ==
[2025-05-29 13:06] VITALS: BP 124/81; PULSE 98; RESP 17
--- NOTE | 2025-05-29 16:13 | P.PAINPG ---
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 Pt states he experienced 50 % pain relief x 3 wks s/p procedure. Pain level is provoked at 8 /10 in intensity, constant, predominantly axial, localized in the lumbar spine, sharp in character w occasional shooting towards the buttocks. Pain is provoked by walking/ standing for periods > 20 min. Pain is alleviated with PT x 6 wks in Fall 2022, physician guided home exercises every other day since Fall 2022, chiropractic treatments monthly since 2024 which he is currently in, acupuncture treatments 1-2 times weekly since Jan 2025 which he is currently in, heat, hot showers, medications, topical, use of a TENS unit, repositioning and rest. Oswestry axial pain score at 26. Interventional pain procedures completed include BL RFA L3-L4 (2020), UDAY L5-S1 (04/21) Patient is currently on Liraglutide, Glipizide, Baclofen, FioFreeze Patient denies any side effects of the medication(s), denies excessive drowsiness or sleepiness, denies suicidal ideation and reports that the current pain medication is helping to control the pain and improve activities of daily living. Patient denies any motor or sensory deficits. Patient denies any fever or night sweats, denies any change in the bowel movements or urination. Physical Examination: -Constitutional: Cooperative. Not in acute distress . - Neurologic: Cranial nerve II to XII intact. No focal neurological deficits. - Psychatric: Alert & oriented x 3. Matching mood & appropriate affect. Judgment and insight intact. - Musculoskeletal: Cervical spine: Muscle bulk/ tone/ strength in the bilateral upper extremities normal Vertebral body tenderness to palpation over Spurling test positive Distraction test positive Facet loading test positive TTP Thoracic spine Muscle bulk / tone/ strength in the bilateral paraspinal muscles normal Vertebral body tender to palpation over Facet loading test positive TTP Lumbar spine: Motor bulk/ tone/ strength lower extremities , thigh and legs : 5/5 Deep tendon reflexes : Normal Knee Jerk. Normal Ankle Jerk . Vertebral body tenderness to palpation over L5 [place] Test positive BL L5-S1 Lumbar Facet Loading Test positive BL L4-L5, L5-S1 Straight Leg Raise: positive at 30 degrees right side/ left side Gaenslen's Test positive Sacral spine : Severe tenderness over the Sacroiliac joint: right side / left side Range of motion: Flexion of the lumbar spine <60 degrees Range of motion: Extension of the lumbar spine <20 degrees Gaenslen's Test positive right side / left side Ángel test: positive right side / left side Thigh Thrust Test positive right side / left side Sacral Thrust Test positive right side / left side imaging Imaging: MRI non contrast lumbar spine from 03/26/2025 reviewed Assessment and plan: Chronic LBP secondary to radiculopathy, spondylosis with facet arthropathy without myelopathy Recommendation of MBB L4-L5, L5-S1 #1. [facility] is taking over the narcotic agreement for [place] prescribing. Risks, benefits of procedure discussed and pt verbalized understanding. Admits to anticoagulant use or medical history of diabetes. Minimal anesthesia provided, if clinically indicated, consisting of Versed and Fentanyl. Would benefit from follow up w his orthopedic surgeon Dr Darren Brewer in [facility] to explore additional treatment options. All questions answered. I have spent less than 30 minutes on patient care today. Dr Kennedy was available by phone for the evaluation of this patient. The time was used to review the medical records including relevant urine studies and Prescription history (MAPs), review of the available imaging, evaluation and examination of the patient, coordination of care with the medical staff and if applicable referring physicians, as well as creation of the medical record - Pain Location Lower Back Non-Pharmacological Interventions: Ice Pharmacological Interventions: Medication PQRS Narrative: Hx Alcohol Use (MH) No Home Medications: Ambulatory Orders Cetirizine HCl 10 mg PO QAM 09/30/20 Losartan [Cozaar] 25 mg PO QAM 09/30/20 Lurasidone [Latuda] 60 mg PO HS 09/30/20 Pantoprazole Sodium 40 mg PO QAM 09/30/20 Pravastatin Sodium [Pravachol] 80 mg PO HS 09/30/20 Tamsulosin [Flomax] 0.4 mg PO HS 09/30/20 Calcium Carbonate [Calcium] 600 mg PO DAILY 02/07/23 Cholecalciferol (Vitamin D3) [Vitamin D3 (50 Mcg = 2000 Iu)] 50 mcg PO DAILY 04/12/25 Famotidine [Pepcid] 40 mg PO DIRECTED PRN 04/12/25 Linaclotide [Linzess] 290 mcg PO DAILY 04/12/25 Mirtazapine 45 mg PO HS 04/12/25 Nf-Dupixent Dose Unk 1 dose INJ Q14D 04/12/25 Ondansetron [Zofran] 4 mg PO Q12HR PRN 04/12/25 glipiZIDE 5 mg PO BID 04/12/25 hydrOXYzine HCL [Atarax] 50 mg PO TID 04/12/25 methocarbamoL 750 mg PO TID 04/12/25 rOPINIRole HCL [Requip] 3 tab PO TID 04/12/25 Controlled Substance Measures - Controlled Substance Measures Is patient prescribed a controlled substance at discharge?: No
== END ==
LOC: PNWHC3 12:24
PROVIDERS: ATTEND Specialist
DX: M47.26 Other spondylosis with radiculopathy, lumbar region (principal); G89.29 Other chronic pain; Z88.2 Allergy status to sulfonamides; Z88.5 Allergy status to narcotic agent; Z91.030 Bee allergy status
CPT/HCPCS: 99212

== ENCOUNTER 2025-06-18 11:24 | Day surgery (SDC) | payer OTHER ==
[2025-06-14 14:57] VITALS: BMI 27.8
[2025-06-18] MEDS: LACTATED RINGERS 1,000 ML IV SCH (11:46)
[2025-06-18] MEDS: IV FLUID CONTINUATION 1,000 ML IV ONE ×2 (11:46→13:03)
[2025-06-18 11:49] VITALS: RESP 16; TEMP 97.2
[2025-06-18 11:56] LABS: Glucose,Whole Blood 102 mg/dL (70-110)
[2025-06-18] MEDS ORDERED: fentaNYL (PF) 50 MCG/ML 2 ML AMP ONE (12:40)
[2025-06-18] MEDS ORDERED: MIDAZOLAM 2 MG/2 ML VIAL ONE (12:40)
[2025-06-18] MEDS ORDERED: ROPIVACAINE 5 MG/ML 30 ML VIAL ONE (12:40)
--- NOTE | 2025-06-18 13:08 | P.PCN ---
Description of Procedure: Preprocedure diagnosis. 1. Lumbar spondylosis with facet joint arthropathy without myelopathy. 2. Lumbar degenerative disc disease. Postprocedure diagnosis. As above. Procedure done. Bilateral diagnostic block with local anesthetics at L3, L4, L5 medial branch to target the facet joint L4- 5 and L5-S1 with fluoroscopic guidan ce (fluoroscopy images are available in the radiology department) . Anesthesia. Moderate sedation with intravenous Versed 2 mg and fentanyl microgram and local infiltration with local anesthetics. In OR, continuous pulse ox, EKG, blood pressure and verbal communication was maintained. Sedation time-start end . Blood loss. Minimal. Indication. The patient has low back pain secondary to lumbar facet joint arthropathy. Discussed the procedure and alternative and complications which includes infection, bleeding, nerve damage, paralysis ,aggravation of pain. Patient understands and all questions were answered. Patient iunderstands that if any pain relief occurs it will last for a few hours to a few days maximum. Procedure description. After getting consent patient was taken in the OR in prone position. Back prepped with chlorhexidine and draped in sterile fashion. After injecting 5 mL of plain 1% lidocaine subcutaneously, a 22-gauge spinal needle was introduced under tunnel vision of the fluoroscope at the junction of the superior articular process with RIGHT ala of the sacrum. With slight oblique fluoroscope, after injecting 5 mL of plain 1% lidocaine subcutaneously, a 22-gauge spinal needle was introduced under tunnel vision of the fluoroscope at the junction of the superior articular process with RIGHT L5 transverse process, junction of the superior articular process with the RIGHT L4 transverse process. Negative CSF, negative blood, negative paresthesia. After needle position confirmation by AP and crosstable lateral view, after negative aspiration, half milliliters of solution were injected at each point. Total 1- 1/2 mL of solution was injected on the right side which consists of 0.5% ropivacaine. In exactly same way, LEFT sided injections were done at the following 3 points. Junction of the superior articular process with left ala of the sacrum, junction of the superior articular process with the left L5 transverse process, junction of the superior articular process with left L4 transverse process using 0.5 mL of solution at each point. Total 1-1/2 mL of solution was injected on the left side which consists of 0.5% ropivacaine . Spinal needles were taken out and bandages were applied. Disposition. Patient tolerated the procedure well. No complication. Discharged home in stable condition
--- NOTE | 2025-06-18 13:13 | FL ---
Fluoroscopy INDICATION: Pain FINDINGS: Fluoroscopy time: 40 seconds. Total dose area product (DAP) in uGy*m?, mGy*cm? (or similar): 0.10839 Images obtained: 5. Images document needles directed towards the lumbar spine IMPRESSION: 1. Documentation of fluoroscopy. [facility], Workstation: [facility], 06/18/2025 1:10 PM
[2025-06-18 13:31] VITALS: BP 134/83; PULSE 64
== END 2025-06-18 13:48 | disposition home or self-care (01) ==
LOC: ORPAIN 11:24
PROVIDERS: ATTEND Pain Medicine Interventional Pain Medicine
DX: M47.816 Spondylosis without myelopathy or radiculopathy, lumbar region (principal); M51.369 Other intervertebral disc degeneration, lumbar region without mention of lumbar back pain or lower extremity pain; E11.9 Type 2 diabetes mellitus without complications; Z88.2 Allergy status to sulfonamides; Z88.5 Allergy status to narcotic agent; Z91.030 Bee allergy status
CPT/HCPCS: 64493; 64494; J2250; J3010; J2795; 99152